=== PATIENT | female | born 1960 | race Caucasian/White ===

== ENCOUNTER 2023-02-18 06:11 | Inpatient (IN) ==
--- NOTE | 2023-01-26 12:35 | PAT Medication Instructions ---
Medication Instructions Date of Service January 26, 2023 Home Medications Cbd 1 dose topical UD PRN Pain aspirin 81 mg capsule 81 mg PO QAM cholecalciferol (vitamin D3) 25 mcg (1,000 unit) tablet (Vitamin D3) 25 mcg PO QAM duloxetine 60 mg capsule,delayed release 60 mg PO BID hydrochlorothiazide 25 mg tablet 25 mg PO QAM hydrocodone 7.5 mg-acetaminophen 325 mg tablet 1 tab PO TID PRN Pain irbesartan 300 mg tablet 300 mg PO QAM levothyroxine 125 mcg tablet 125 mcg PO QAM semaglutide 1 mg/dose (2 mg/1.5 mL) subcutaneous pen injector (Ozempic) 1 mg subcut WK sitagliptin phosphate 25 mg tablet (Januvia) 25 mg PO QAM Continue as directed semaglutide 1 mg/dose (2 mg/1.5 mL) subcutaneous pen injector (Ozempic) 1 mg subcut WK DO NOT take the morning of surgery Cbd 1 dose topical UD PRN Pain cholecalciferol (vitamin D3) 25 mcg (1,000 unit) tablet (Vitamin D3) 25 mcg PO QAM hydrochlorothiazide 25 mg tablet 25 mg PO QAM irbesartan 300 mg tablet 300 mg PO QAM sitagliptin phosphate 25 mg tablet (Januvia) 25 mg PO QAM Take morning of surgery With a small sip of water, OTHERWISE NOTHING TO EAT OR DRINK AFTER MIDNIGHT: aspirin 81 mg capsule 81 mg PO QAM (unless surgeon directed otherwise) duloxetine 60 mg capsule,delayed release 60 mg PO BID hydrocodone 7.5 mg-acetaminophen 325 mg tablet 1 tab PO TID PRN Pain (if needed) levothyroxine 125 mcg tablet 125 mcg PO QAM Take evening before surgery Cbd 1 dose topical UD PRN Pain (if needed) duloxetine 60 mg capsule,delayed release 60 mg PO BID hydrocodone 7.5 mg-acetaminophen 325 mg tablet 1 tab PO TID PRN Pain (if needed) Other Notes If you have any questions please call us at [phone] or [phone] or [phone] or [phone]
--- NOTE | 2023-02-04 12:04 | Anesthesiology Consultation ---
Date of Service February 04, 2023 Assessment & Plan (1) Encounter for pre-operative examination: Chart Review Chart Review: Acceptable Risk for Surgery (pending PCP clearance 02/10/23) and Patient seen in Pre Admission Testing -Awaiting PCP clearance 02/10/23 - Check BSG AM DOS Per PAT appt on 02/04/23, patient denies any recent travel or large group activities. Pt is vaccinated for Covid. Will leave to surgeon's discretion if preop Covid testing needed. Educated on importance of using Covid precautions one week prior to surgery Last seen by cardiology 04/22/2022 = patient seen for annual follow-up for cardiovascular disease. Patient presented March 2019 with acute anterior STEMI. LVEF 40-45%. Follow-up echo in May 2019 demonstrated mild LVH with LV EF 55 to 60%. Patient appears stable from cardiac standpoint. Complaints limited to chronic fatigue that seem to be multifactorial. BP well controlled. No signs of decompensated heart failure. Tolerating lovastatin. Remains on Aspirin 81 mg. No further cardiac testing is warranted at this time. Follow-up in 1 year. Teaching & Discussion Pre-Anesthesia Teaching/Discussion Notes: Instructed NPO after midnight before surgery,except medications with 15 cc of water. Medication instructions provided according to the PAT guidelines. History Surgery Operation Date: 02/18/23 09:05 Proposed Procedures p L4-S1 Decompression and Fusion, Spinal Cord Monitoring - Vinny Mckinley DO Height/Weight Height: 5 ft Weight: 87.7 kg Allergies Allergy/AdvReac Type Severity Reaction Status Date / Time No Known Allergies Allergy Verified 01/26/23 11:02 Medications Home Medications Medication Instructions Recorded Confirmed Last Taken Cbd 1 dose topical UD PRN Pain 01/26/23 01/26/23 Unknown aspirin 81 mg capsule 81 mg PO QAM 01/26/23 01/26/23 Unknown cholecalciferol (vitamin D3) 25 25 mcg PO QAM 01/26/23 01/26/23 Unknown mcg (1,000 unit) tablet (Vitamin D3) duloxetine 60 mg capsule,delayed 60 mg PO BID 01/26/23 01/26/23 Unknown release hydrochlorothiazide 25 mg tablet 25 mg PO QAM 01/26/23 01/26/23 Unknown hydrocodone 7.5 mg-acetaminophen 1 tab PO TID PRN Pain 01/26/23 01/26/23 Unknown 325 mg tablet irbesartan 300 mg tablet 300 mg PO QAM 01/26/23 01/26/23 Unknown levothyroxine 125 mcg tablet 125 mcg PO QAM 01/26/23 01/26/23 Unknown semaglutide 1 mg/dose (2 mg/1.5 1 mg subcut WK 01/26/23 01/26/23 Unknown mL) subcutaneous pen injector (Ozempic) sitagliptin phosphate 25 mg tablet 25 mg PO QAM 01/26/23 01/26/23 Unknown (Lucius) deucravacitinib 6 mg tablet 6 mg PO QAM 02/04/23 02/04/23 Unknown (Otto) Past Medical History Medical History (Updated 02/04/23 @ 15:05 by Madelin Enamorado PA-C) Bulging lumbar disc CAD (coronary artery disease) s/p JED to LAD 2018 Chronic back pain Degenerative disc disease Depression Diabetes mellitus, type 2 Glucose stable GERD (gastroesophageal reflux disease) rarely Hyperlipidemia Hypertension Hypothyroidism Myocardial Infarction March 2019. follows with Dr. Dash ([facility]) Nausea and vomiting after administration of anesthetic agent BONNIE (obstructive sleep apnea) untreated Ovarian mass 2020- s/p bilateral oophorectomy; precancerous - no chemo or XRT needed Psoriasis to head and foot- Spinal stenosis Exercise / Class Metabolic Activity II 4-5 Yardwork/Stairs/Walk up hill (one flight of stairs- no chest pain or SOB) Past Family History Family History Other No family history of adverse response to anesthesia Past Surgical History Surgical History H/O bilateral oophorectomy 2020 History of appendectomy History of cardiac cath [facility] 2018 with x1 stent. History of cholecystectomy History of dilatation and curettage History of esophagogastroduodenoscopy (EGD) History of heart artery stent x1 (2018) History of repair of rotator cuff right S/P epidural steroid injection S/P laparoscopic hysterectomy Past Anesthesia History No Hx of Anesthesia Complications (with exception PONV ) and No Family Hx of Anesthesia Complications History of PONV No Hx of Motion Sickness and History of PONV (improved with pre treatment of anti-nausea medication) Social History Smoking Status: Never smoker Do You Dip or Chew Tobacco: No Hx Alcohol Use: No Hx Substance Use: No substance use type: does not use Review of Systems Patient denies chest pain, shortness of breath, dyspnea on exertion, cough, wheezing, palpitations. No hx of seizures, stroke. No hx of blood clots or blood transfusions Physical Exam Vital Signs VITALS BP 108/78 (manually) P 84 TEMP 98.3 SP02 95% RESP 16 Constitutional no acute distress ENMT Mouth: no TMJ clicking Thyromental Distance: < 3.5 Finger Breadths (3.0) Mallampati Class: III Cap to left upper side tooth Neck + limited neck extension (minimal) Respiratory normal respiratory effort; no respiratory distress Auscultation: lungs clear to auscultation bilaterally; no wheezes Cardiovascular Rate/Rhythm: regular rate and regular rhythm Heart Sounds: no murmur Vessels: no carotid bruit Musculoskeletal Spine: no pain with cervical ROM Extremities: extremities normal to inspection Psychiatric Orientation: alert Lab Results Anesthesia Preop Results Results Anesthesia Widget: WBC 8.52 K/ul (4.8-10.8) 02/04/23 Hgb 13.6 g/dl (12.0-16.0) 02/04/23 Hct 40.3 % (37.0-47.0) 02/04/23 Plt 261 K/uL (130-400) 02/04/23 Na 142 mmol/L (136-145) 02/04/23 K 3.4 mmol/L (3.5-5.1) L 02/04/23 Cl 101 mmol/L (98-107) 02/04/23 CO2 35 mmol/L (21-32) H 02/04/23 BUN 9 mg/dl (6-23) 02/04/23 Creat 0.70 mg/dl (0.6-1.2) 02/04/23 Glucose Level 88 mg/dl (70-99(Fasting)) 02/04/23 PT 11.1 Seconds (9.0-12.0) 02/04/23 PTT 29.1 Seconds (21.0-31.0) 02/04/23 INR 1.0 (0.9-1.1) 02/04/23 HA1c 6.8 % (4.5-5.6) H 02/04/23 Urine Color Yellow 02/04/23 Urine Appearance Clear (Clear) 02/04/23 Urine pH 6.5 (4.5-7.5) 02/04/23 Urine Specific [place] 1.014 (1.000-1.030) 02/04/23 Urine Protein Negative (Negative) 02/04/23 Urine Glucose (UA) Negative (Negative) 02/04/23 Urine Ketones Negative (Negative) 02/04/23 Urine Blood Negative (Negative) 02/04/23 Urine Nitrite Negative (Negative) 02/04/23 Urine Bilirubin Negative (Negative) 02/04/23 Urine Urobilinogen Negative (Negative) 02/04/23 Urine Leukocyte Esterase Negative (Negative) 02/04/23 Blood Type A Positive 02/04/23 Antibody Screen NEGATIVE 02/04/23 Testing Electrocardiogram Date: 04/22/22 Findings: + NSR @ (81bpm) When compared EKG from April 01, 2019T wave inversion no longer evident in anterior lateral leads per cardio Chest X-Ray Date: 02/04/23 FINDINGS: Lung volumes are normal. Lungs are clear. There is no pneumothorax or pleural effusion. Cardiac size is normal. Mediastinal contours are normal. There is no evidence for pulmonary edema. IMPRESSION: No acute cardiopulmonary findings. Echocardiogram Date: 06/13/19 EF: 55-60% LV Function: normal Other Findings: + LVH (mild/concentric ) Valvular Disease: + no significant valvular disease Stress Test Date: 02/28/19 Type: exercise Regular stress test negative for ischemia Patient remained asymptomatic other than mild dyspnea on exertion as the exercise phase was in progress. No ectopy other ventricular or supraventricular Cardiac Catheterization Date: 03/30/19 LM- normal LAD- 95% pLAD stenosis Cx- mild luminal irregularities RCA- mildly diseased proximally and luminal irregularities only LAD lesion stented with JED Recommend one year of antiplatelet therapy COVID-19 Risk Screen Screening Information COVID-19 Screen Date: 02/04/23 Exposure 21 Days Family/Household +COVID Last 21 Days: No Exposure 10 Days Any COVID Exposure Last 10 Days: No Symptoms Last 10 Days Experienced COVID Sx Last 10 Days: No + COVID 0-90 Days COVID + in Last 0-90 Days: No Risk Plan COVID Risk Plan: No Risk Identified Patient Education COVID Preop Screening Education Complete: Yes
[~2023-02-18 06:11] MED LIST: ACETAMINOPHEN 500 MG TAB PO SCH; CeleBREX 200 MG CAP PO SCH; GABAPENTIN 300 MG CAP PO SCH; GABAPENTIN 600 MG DOSE PO SCH; LR 15ML/HR IV SCH; ceFAZolin 2000MG 2,000 MG/15 ML SYR IV SCH
[2023-02-18] MEDS ORDERED: SCOPOLAMINE 1 MG TDSY TD ONE ×2 (07:06→07:07)
[2023-02-18] MEDS ORDERED: ceFAZolin 330 MG/ML 1 GM VIAL ONE (07:06)
[2023-02-18] MEDS ORDERED: BUPIVACAINE/EPINEPHRINE 0.25% 1:200,000 30 ML VIAL ONE (07:06)
[2023-02-18] MEDS ORDERED: fentaNYL citrate PF 100 MCG/2 ML VIAL ONE (07:13)
[2023-02-18] MEDS ORDERED: MIDAZOLAM HCL 1 MG/ML 2ML VIAL ONE (07:13)
[2023-02-18] MEDS ORDERED: HYDROmorphone INJ 2 MG/ML SYR/VIAL IV PRN (07:15)
[2023-02-18] MEDS ORDERED: ePHEDrine sulfate 50 MG/ML AMP IV PRN (07:15)
[2023-02-18] MEDS ORDERED: ATROPINE SULFATE 0.1 MG/ML 10ML SYR IV PRN (07:15)
[2023-02-18] MEDS ORDERED: ONDANSETRON INJ 2 MG/ML 2 ML VIAL IV PRN ×2 (07:15→11:32)
[2023-02-18] MEDS ORDERED: ONDANSETRON INJ 2 MG/ML 2 ML VIAL ONE (07:27)
[2023-02-18] MEDS ORDERED: PROPOFOL IV EMULSION 10 MG/ML 20 ML VIAL IV ONE (07:27)
[2023-02-18] MEDS ORDERED: GLYCOPYRROLATE 0.2 MG/ML VIAL ONE (07:27)
[2023-02-18] MEDS ORDERED: LIDOCAINE 2% 2 ML VIAL/AMP(20MG/ML) INFIL ONE (07:27)
[2023-02-18] MEDS ORDERED: DEXAMETHASONE SOD INJ 4 MG/ML VIAL ONE (07:27)
[2023-02-18] MEDS ORDERED: diphenhydrAMINE 50 MG/ML VIAL ONE (07:27)
[2023-02-18] MEDS ORDERED: DexMEDEtomidine HCL IV 100 MCG/ML VIAL IV ONE (07:33)
--- NOTE | 2023-02-18 07:51 | History & Physical Bridge Note ---
Date of Service February 18, 2023 History & Physical Bridge Note I have examined the patient, reviewed the History & Physical and in the interval since the performance of the History & Physical I have noted the following changes of clinical significance: no changes noted
--- NOTE | 2023-02-18 07:52 | History & Physical Report ---
Date of Service February 18, 2023 Assessment & Plan (1) Neurogenic claudication due to lumbar spinal stenosis: Plan: L4-S1 decompression and fusion History of Present Illness Chief Complaint: Back and leg pain Primary Care Provider: Fernando Valenzuela This is a 62-year-old female who presents with chronic persistent back and leg pain after failing course of nonoperative care she is here for surgical invention. Allergies Allergy/AdvReac Type Severity Reaction Status Date / Time No Known Allergies Allergy Verified 02/18/23 06:40 Home Medications Medication Instructions Recorded Confirmed Type Cbd 1 dose topical UD PRN Pain 01/26/23 02/18/23 History aspirin 81 mg capsule 81 mg PO QAM 01/26/23 02/18/23 History cholecalciferol (vitamin D3) 25 25 mcg PO QAM 01/26/23 02/18/23 History mcg (1,000 unit) tablet (Vitamin D3) duloxetine 60 mg capsule,delayed 60 mg PO BID 01/26/23 02/18/23 History release hydrochlorothiazide 25 mg tablet 25 mg PO QAM 01/26/23 02/18/23 History hydrocodone 7.5 mg-acetaminophen 1 tab PO TID PRN Pain 01/26/23 02/18/23 History 325 mg tablet irbesartan 300 mg tablet 300 mg PO QAM 01/26/23 02/18/23 History levothyroxine 125 mcg tablet 125 mcg PO QAM 01/26/23 02/18/23 History semaglutide 1 mg/dose (2 mg/1.5 1 mg subcut WK 01/26/23 02/18/23 History mL) subcutaneous pen injector (Ozempic) sitagliptin phosphate 25 mg tablet 25 mg PO QAM 01/26/23 02/18/23 History (Januvia) deucravacitinib 6 mg tablet 6 mg PO QAM 02/04/23 02/18/23 History (Sotyktu) Past Med/Surg History Medical History (Updated 02/18/23 @ 07:52 by Vinny Mckinley DO) Bulging lumbar disc CAD (coronary artery disease) s/p JED to LAD 2019 Chronic back pain Degenerative disc disease Depression Diabetes mellitus, type 2 Glucose stable GERD (gastroesophageal reflux disease) rarely Hyperlipidemia Hypertension Hypothyroidism Myocardial Infarction March 2019. follows with Dr. Dash ([facility], [place], operated by [facility]) Nausea and vomiting after administration of anesthetic agent BONNIE (obstructive sleep apnea) untreated Ovarian mass 2020- s/p bilateral oophorectomy; precancerous - no chemo or XRT needed Psoriasis to head and foot- Spinal stenosis Surgical History H/O bilateral oophorectomy 2020 History of appendectomy History of cardiac cath [facility] 2018 with x1 stent. 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
[2023-02-18] MEDS ORDERED: ROCURONIUM BROMIDE 10 MG/ML 5 ML VIAL IV ONE ×2 (08:39→09:23)
[2023-02-18] MEDS ORDERED: FLOSEAL HEMOSTATIC MATRIX 10ML TOP ONE (08:53)
[2023-02-18] MEDS ORDERED: PHENYLEPHRINE HCL 10 MG/ML VIAL ONE (09:48)
[2023-02-18] MEDS ORDERED: SODIUM CHLORIDE 0.9% PF INJ 10 ML VIAL ONE (09:48)
[2023-02-18] MEDS ORDERED: ePHEDrine sulfate 50 MG/ML AMP ONE (09:48)
[2023-02-18] MEDS ORDERED: SUGAMMADEX SODIUM 200 MG/2 ML VIAL IV ONE ×2 (09:57→12:45)
--- NOTE | 2023-02-18 10:09 | Operative Report ---
Post Operative Report Pre & Post Diagnosis Operation Date: 02/18/23 07:45 Pre-Op Diagnosis: Neurogenic claudication due to lumbar spinal stenosis L4-S1 Post-Op Diagnosis: Neurogenic claudication due to lumbar spinal stenosis L4-S1 I identified the patient and participated in the time-out.: Yes Procedure Operation Date: 02/18/23 07:45 Actual Procedures 1. Lumbar decompression with bilateral medial facetectomies and foraminotomies L3-L4, L4-5 and L5-S1. #2 posterior spinal fusion L4-L5 L5-S1. #3 placed posterior instrumentation L5-S1. #4 interbody fusion L5-S1. #5 placement Spira 12 x 26 mm cage at L5-S1. #6 placement locally harvested morselized autograft in the posterior gutters. #7 placement of I factor bone of the talus in the interbody space and posterior lateral gutters. Surgeon Vinny Mckinley, DO Support Merchandiser Radames Barreto Estimated Blood Loss 100 Findings See Below The patient is 5 foot tall weighing over 87 kg with a BMI in excess of 37. The patient's body was did contribute to significant technical difficulty adding her deepest retractors and longer instruments in order to perform her procedure. This at least 50% increased operative time. Specimens none Indications This is a 62-year-old female presents above-mentioned diagnosis after failing since course of nonoperative care she is here for surgical invention. Description of Procedure Patient was met with identified informed consent obtained. Patient was then taken to the operative suite underwent a patient placed in a prone position on the [facility] frame. All bony promises well-padded eyes inspected to ensure no external pressure placed upon the. This point the lumbar spine was prepped and draped in a sterile fashion. Sharp dissection with the assistance of Bovie cautery to form down to and exposing the lamina transverse processes of L4-5 and sacral ala bilaterally. From caudal cephalad fashion complete laminectomy of L5 L4 and partial laminectomy L3 was performed including bilaterally facetectomies and foraminotomies addressing severe spinal stenosis. Pedicle screws were then placed in L4-5 and S1 levels bilaterally with assistance of fluoroscopy and the properly sized tino placed. By way of transforaminal approach and right complete discectomy of L5-S1 was performed endplates curetted to subcortically and bone and a 12 x 26 mm Spira cage with I factor tapped in position. The rods then locked in final position bilaterally. The transverse processes of L4-L5 and the sacral ala burred to subcortically bone. I factor combined with the test and locally harvested morselized autograft was placed in posterior gutters. 15 round PO drain inserted. The incision was then closed with 1 Vicryl the fascia 2-0 Vicryl subcutaneously and 4 Monocryl for final skin closure. Steri-Strips sterile dressing placed. Patient waken taken to PACU stable condition. Please note spinal cord monitoring was utilized at the procedure no changes noted. Lastly Radames Barreto was present at the entire surgeon while the patient positioning complex portion of the surgery and final skin closure. I attest to the content of the Intraoperative Record and any orders documented therein. Any exceptions are noted below.
--- NOTE | 2023-02-18 10:43 | Fluoroscopy Report ---
INTRAOPERATIVE RADIOGRAPHS CLINICAL HISTORY: L4-S1 spinal fusion. Fluoro time: 30 seconds Ka,r: 26.72 mGy FINDINGS: 2 spot fluoroscopic views of the lumbar spine are presented. There has been discectomy at L 5-S1 with laminectomy and posterior fusion at L4-S1. Interpedicular screws are present at all levels. The orthopedic hardware appears intact. IMPRESSION: Intraoperative images from lumbar spinal fusion surgery as above. Electronically signed by: Mann Rashid M.D. 02/18/2023 10:41 AM
[2023-02-18] MEDS ORDERED: HYDROmorphone INJ 1 MG/ML SYRINGE IV PRN (11:32)
[2023-02-18] MEDS ORDERED: bisacodyL 10 MG SUPP PR PRN (11:32)
[2023-02-18] MEDS ORDERED: DO NOT ADMINISTER FLU VACCINE PRN (11:32)
[2023-02-18] MEDS ORDERED: NALOXONE HCL 0.4 MG/1 ML VIAL/CARP IV PRN (11:32)
[2023-02-18] MEDS ORDERED: DO NOT ADMINISTER PNEUMOCOCCAL VACCINE PRN (11:32)
[2023-02-18] MEDS ORDERED: diphenhydrAMINE Capsule 25 MG CAP PO PRN (11:32)
[2023-02-18] MEDS ORDERED: LORazepam 0.5 MG TAB PO PRN (11:32)
[2023-02-18] MEDS ORDERED: MAGNESIUM HYDROXIDE SUSP 30 ML UDC PO PRN (11:32)
[2023-02-18] MEDS ORDERED: HYDROmorphone INJ 0.5 MG/0.5 ML SYR IV PRN (11:32)
[2023-02-18] MEDS ORDERED: PROMETHAZINE HCL 12.5 MG in SODIUM CHLORIDE 0.9% 50 ML IV PRN (11:32)
[2023-02-18] MEDS ORDERED: LORazepam 2 MG/1 ML VIAL IV PRN (11:32)
[2023-02-18] MEDS ORDERED: hydrOXYzine HCl 25 MG TAB PO PRN (11:32)
[2023-02-18] MEDS ORDERED: ALUMINUM/MAGNESIUM SUSP 30 ML UDC PO PRN (11:32)
[2023-02-18] MEDS ORDERED: ACETAMINOPHEN 1,000 MG/100 ML VIAL IV PRN (11:32)
[2023-02-18] MEDS ORDERED: PHARMACY GLYCEMIC MGMT CONSULT PRN (11:32)
[2023-02-18] MEDS ORDERED: ACETAMINOPHEN 500 MG TAB PO PRN (11:32)
[2023-02-18] MEDS ORDERED: traMADol HCL 50 MG TABLET PO PRN (11:32)
[2023-02-18] MEDS ORDERED: SOD PHOSPHATE/SOD BIPHOSPHATE ENEMA 132 ML BTL PR PRN (11:32)
[2023-02-18] MEDS ORDERED: METOCLOPRAMIDE HCL INJ 5 MG/ML 2 ML VIAL IV PRN (11:32)
[2023-02-18] MEDS ORDERED: FAMOTIDINE 20 MG TAB PO PRN (11:32)
[2023-02-18] MEDS ORDERED: ONDANSETRON 4 MG OD TAB PO PRN (11:32)
--- NOTE | 2023-02-18 11:34 | Anesthesiology Progress Note ---
Date of Service February 18, 2023 Anesthesia Post Procedure Vital Signs Vital Signs: Temp Pulse Pulse Resp BP BP Pulse Ox 02/18/23 11:05 88 12 119/71 99 02/18/23 10:55 36.7 C 83 12 127/77 100 02/18/23 10:45 90 12 111/73 99 02/18/23 10:35 92 H 14 130/68 98 02/18/23 10:28 36.3 C L 85 16 120/66 98 02/18/23 06:40 36.7 C 69 16 119/77 98 O2 Del Method O2 Flow Rate 02/18/23 11:05 Nasal Cannula 2 02/18/23 10:55 Nasal Cannula 2 02/18/23 10:45 Nasal Cannula 3 02/18/23 10:35 Oxymask 6 02/18/23 10:28 Oxymask 12 02/18/23 06:40 Room Air Pain Intensity Lower Back: Pain Intensity: 6 Transfer of Care Handoff Completed per policy Notes Mental Status: alert / awake / arousable and participated in evaluation Nausea / Vomiting: adequately controlled Pain: adequately controlled Airway Patency, RR, SpO2: stable & adequate BP & HR: stable & adequate Hydration State: stable & adequate Anesthetic Complications: no major complications apparent and Pt Satisfied with anesthetic care
[2023-02-18] MEDS ORDERED: LANTUS PER UNIT CHARGE SC STA ×2 (12:02→12:03)
[2023-02-18] MEDS ORDERED: GLUCAGON FOR INJ 1 MG VIAL IM PRN (12:15)
[2023-02-18] MEDS ORDERED: GLUCOSE 40% GEL 15 GM TUBE PO PRN (12:15)
[2023-02-18] MEDS ORDERED: DEXTROSE 50% 50 ML SYRINGE IV PRN (12:15)
[2023-02-18] MEDS ORDERED: GLUCOSE 10 TAB/TUBE PO PRN (12:15)
[2023-02-18] MEDS ORDERED: CARBOHYDRATES FOR HYPOGLYCEMIA PO PRN (12:15)
[2023-02-18] MEDS: INSULIN ASPART PER UNIT CHARGE SC SCH ×3 (12:25→21:10)
--- NOTE | 2023-02-18 13:12 | Consultation ---
Date of Consultation February 18, 2023 Assessment & Plan (1) Neurogenic claudication due to lumbar spinal stenosis: (2) Myocardial Infarction: (3) CAD (coronary artery disease): (4) BONNIE (obstructive sleep apnea): (5) Diabetes mellitus, type 2: (6) Hypertension: (7) Hyperlipidemia: (8) Depression: (9) GERD (gastroesophageal reflux disease): (10) Ovarian mass: Plan 62 year olf female that presents to the [facility] for an elective procedure under the care of Dr. Mckinley after failed conservative management. Ms. Soto underwent an L4-S1 decompression and fusion surgery along with interbody fusion of L5-S1. History of AMI 2019 status post stent; takes baby aspirin and follows with [facility]. Takes Januvia for diabetes and HCTZ and irbesartan for HTN. Neurogenic claudication due to lumbar spinal stenosis: POD#0 s/p L4-S1 decompression and fusion surgery with interbody fusion L5-S1 under the care of Dr. Mckinley. Per ortho for pain control, wound care, anticoagulation and activities. Monitor H&H, continue incentive spirometry PT/OT when appropriate CAD: History of AMI status post JED to LAD [address] Lees [facility] Takes baby aspirin; continue BONNIE: Untreated Would benefit from outpatient pulmonology Diabetes mellitus, type II: Takes Januvia and Ozempic; hold while here SSI per inpatient protocol; orderd by primary team HTN: Takes hydrochlorothiazide and irbesartan; hold as SBP 90-100; re-evaluate in AM Depression: Takes duloxetine; continue Psoriasis: Takes deucravacitinib; continue History of ovarian mass: Diagnosed 2020 status post oophorectomy Determined precancerous no chemo or radiation necessary Hypothyroidism: Takes levothyroxine; continue Disposition: PCP: Dr. Valenzuela CODE STATUS: Full code VTE prophylaxis: Per admitting team I spent a total of 60 minutes coordinating, documenting, and providing care for this patient excluding time spent in the performance of separately billed services. All of the aforementioned completed while collaborating with the assigned attending physician for a full treatment plan. Please see their addendum for further details. Supervising Physician Co-Signing Physician Notes Patient is a 62-year-old female with history of diabetes mellitus, renal mass, depression, coronary artery disease, obstructive sleep apnea currently not using CPAP was consulted for postop medical management. Patient underwent lumbar decompression, fusion surgery by Dr. Mckinley for neurogenic claudication of lumbar spinal stenosis L4-S1. Patient is slightly lethargic, hypotensive postop but otherwise doing well. Denies any chest pain, dyspnea, dizziness, nausea, vomiting, abdominal pain. On exam patient is obese, no apparent distress, normocephalic atraumatic, EOMI, normal breath sounds, clear to auscultation, S1- S2, no murmur, no pedal edema, abdomen soft, nontender, normal bowel sounds, back+ surgical site in dressing, drain, alert, awake, oriented, grossly no focal deficits. Postoperative state: Hold antihypertensives given low BP. Continue gentle IV fluids. DVT prophylaxis, activity, wound care as per primary team. Incentive spirometry. Monitor for postop anemia. Bowel regimen to prevent constipation. Utilize insulin while hospitalized for diabetes management. PT OT, fall precautions. I personally reviewed the record. Patient is interviewed and examined at bedside. Patient's care is coordinated with Socorro LUIS. Please refer to the documentation above for details of patient's presentation and for discussion of other issues. History of Present Illness Requesting Physician: Dr. Mckinley Reason for Consultation: Post operative medical management Attending Physician: Vinny Mckinley, DO History of Present Illness Ms. Najera is a 62 year old female that presents to the [facility] for an elective procedure under the care of Dr. Mckinley after failed conservative management. Ms. Soto underwent an L4-S1 decompression and fusion surgery along with interbody fusion of L5-S1. Postoperative lumbar spine x-ray was performed. EBL 100mL. Patient has a PMH that includes: AMI status post JED to LAD in 2019 (follows with [facility] )HTN, HLD, GERD, depression, history of ovarian mass diagnosed 2020 status post oophorectomy (precancerous/no chemo/radiation). Patient denies headache, dizziness, visual or auditory changes, chest pain, palpitations, shortness of breath, abdominal pain or tenderness, urinary or bow el changes. Patient sitting in her hospital bed in no apparent distress. Able to answer questions appropriately without complication. Pt denies neuropathic symptoms in her lower extremities and is able to move all extremities. Complaining of 4-5/10 incisional pain. Please see A/P for further details. Thank you kindly for the post-operative medical consultation. Allergies Allergy/AdvReac Type Severity Reaction Status Date / Time No Known Allergies Allergy Verified 02/18/23 06:40 Home Medications Medication Instructions Recorded Confirmed Type Cbd 1 dose topical UD PRN Pain 01/26/23 02/18/23 History aspirin 81 mg capsule 81 mg PO QAM 01/26/23 02/18/23 History cholecalciferol (vitamin D3) 25 25 mcg PO QAM 01/26/23 02/18/23 History mcg (1,000 unit) tablet (Vitamin D3) duloxetine 60 mg capsule,delayed 60 mg PO BID 01/26/23 02/18/23 History release hydrochlorothiazide 25 mg tablet 25 mg PO QAM 01/26/23 02/18/23 History hydrocodone 7.5 mg-acetaminophen 1 tab PO TID PRN Pain 01/26/23 02/18/23 History 325 mg tablet irbesartan 300 mg tablet 300 mg PO QAM 01/26/23 02/18/23 History levothyroxine 125 mcg tablet 125 mcg PO QAM 01/26/23 02/18/23 History semaglutide 1 mg/dose (2 mg/1.5 1 mg subcut WK 01/26/23 02/18/23 History mL) subcutaneous pen injector (Ozempic) sitagliptin phosphate 25 mg tablet 25 mg PO QAM 01/26/23 02/18/23 History (Januvia) deucravacitinib 6 mg tablet 6 mg PO QAM 02/04/23 02/18/23 History (Sotyktu) Patient History Medical History (Updated 02/18/23 @ 13:04 by TOBY Stone) Bulging lumbar disc CAD (coronary artery disease) s/p JED to LAD 2018 Chronic back pain Degenerative disc disease Depression Diabetes mellitus, type 2 Glucose stable GERD (gastroesophageal reflux disease) rarely Hyperlipidemia Hypertension Hypothyroidism Myocardial Infarction March 2019. follows with Dr. Dash ([facility]) Nausea and vomiting after administration of anesthetic agent BONNIE (obstructive sleep apnea) untreated Ovarian mass 2020- s/p bilateral oophorectomy; precancerous - no chemo or XRT needed Psoriasis to head and foot- Spinal stenosis Surgical History H/O bilateral oophorectomy 2020 History of appendectomy History of cardiac cath [facility] 2018 with x1 stent. History of cholecystectomy History of dilatation and curettage History of esophagogastroduodenoscopy (EGD) History of heart artery stent x1 (2018) History of repair of rotator cuff right S/P epidural steroid injection S/P laparoscopic hysterectomy Family History Other No family history of adverse response to anesthesia Social History Smoking Status: Never smoker Second Hand Exposure: No; Do You Dip or Chew Tobacco: No; Tobacco Cessation Education Requested by Patient: No Hx Alcohol Use: No Hx Substance Use: No Preferred Language: Surinamese Communication Ability: Effective Fitting Room Maintenance Mechanic Required: No Beliefs That Will Affect Care: None Current Living Situation: Spouse Other Information That Helps Us Care for You: No Feels Safe at Home: Yes Safety Concerns: Feels Safe At This Time Assistive Devices: Glasses Review of Systems Review of Systems: Neuro: (-) Falls, trauma, slurred speech HEENT: (-) MCCARTHY, dizziness, dysphagia, visual or auditory changes CV: (-) CP, palpitations, swelling Resp: (-) SOB GI: (-) appetite changes, N/V/D, bowel changes : (-) urinary changes Skin: (-) rashes Psych: (-) anxiety, depression Physical Exam Physical Exam: Neuro: AAOx4, PERRLA, no aphagia, memory changes, CNII-XII grossly intact HEENT: head normocephalic, moist mucus membranes CV: S1/S2, (-) M/G/R, (-) edema, cap refill < 3 seconds . PO drain x1 with sneha red bloody output. Resp: Lungs CTA in all alaniz. On RA GI: Abdomen S/NT/ND, Ax4 bowel sounds, (-) CVA tenderness Musculoskeletal: 5/5 B/L UE strength, 5/5 B/L LE strength. no neuropathic pain. Skin: (-) rashes , (-) erythema. Psych: euthymic mood Results & Data Vital Signs (Past 12 Hours) Vital Signs Temp Pulse Pulse Pulse Resp BP BP 02/18/23 12:15 37.1 C 88 16 100/58 L 02/18/23 11:45 36.5 C 73 16 104/68 02/18/23 11:05 88 12 119/71 02/18/23 10:55 36.7 C 83 12 127/77 02/18/23 10:45 90 12 111/73 02/18/23 10:35 92 H 14 130/68 02/18/23 10:28 36.3 C L 85 16 120/66 02/18/23 06:40 36.7 C 69 16 119/77 Pulse Ox O2 Del Method O2 Flow Rate 02/18/23 12:15 95 Nasal Cannula 2 02/18/23 11:45 93 Room Air 02/18/23 11:05 99 Nasal Cannula 2 02/18/23 10:55 100 Nasal Cannula 2 02/18/23 10:45 99 Nasal Cannula 3 02/18/23 10:35 98 Oxymask 6 02/18/23 10:28 98 Oxymask 12 02/18/23 06:40 98 Room Air Diagnostic Findings Lumbar Spine X-Ray 02/18/23 07:45 INTRAOPERATIVE RADIOGRAPHS CLINICAL HISTORY: L4-S1 spinal fusion. Fluoro time: 30 seconds Ka,r: 26.72 mGy FINDINGS: 2 spot fluoroscopic views of the lumbar spine are presented. There has been discectomy at L5-S1 with laminectomy and posterior fusion at L4-S1. Interpedicular screws are present at all levels. The orthopedic hardware appears intact. IMPRESSION: Intraoperative images from lumbar spinal fusion surgery as above. Electronically signed by: Mann Rashid M.D. 02/18/2023 10:41 AM
--- NOTE | 2023-02-18 14:02 | Pharmacy Report ---
Pharmacy Glycemic Short Note 2 - Date of Service February 18, 2023 - Glycemic Short BSG Results (Last 24 hours): 02/18/23 02/18/23 02/18/23 06:39 10:30 11:53 POC Glucose 112 H 124 H 151 H OUTPATIENT ANTIDIABETIC REGIMEN: * Januvia 25 mg PO AM * Ozempic 1 mg SC once weekly * HbA1c: 6.8% (02/04/23) ASSESSMENT: * 62 yo F admitted on 02/18/23 postoperatively following a L4-S1 decompression and fusion. Pharmacy has been consulted to assist with inpatient glycemic management. Patient is a controlled Type 2 diabetic as an outpatient. Please refer to outpatient regimen and most recent HbA1c above. * Preop BSG was 112 mg/dL. BSG was 124 mg/dL intraop. Postop BSG was 151 mg/dL. * Patient did receive 4 mg of IV dexamethasone intraoperatively. Ordered 6 mg of IV dexamethasone daily x 3 days starting on 02/19/23. Other stressors expected to remain stable. Tolerating a diet postoperatively as well. * Will give full daily basal dose of 0.2 units/kg now x 1 followed by starting 0.1 units/kg SC BID moving forward. Bolus regimen will be based on weight/stress of 3 while on steroids. PLAN FOR INPATIENT GLYCEMIC CONTROL: * Hold outpatient oral diabetes medications * Basal insulin * Lantus 20 units SC x 1 now, then 0-10 units SC BID per scale (see eMAR for more details) * Bolus insulin * NovoLog per scale ACHS or Q6hrs while NPO * Goal Range: Low 110 mg/dL - High 140 mg/dL * Correction Factor: 20 mg/dL/unit * Nutritional / Prandial insulin per carb ratio of 1 unit per 7 grams CHO consumed
[2023-02-18] MEDS: CHECK SCOPOLAMINE PATCH PLACEMENT SCH (15:46)
[2023-02-18] MEDS: ceFAZolin 2000MG 2,000 MG/15 ML SYR IV SCH (15:46)
[2023-02-18] MEDS: SODIUM CHLORIDE 0.9% 1000ML 1,000 ML IV SCH ×2 (15:47→21:16)
[2023-02-18] MEDS: [UNRECOGNIZED DRUG - OTHER] PO SCH (17:52)
[2023-02-18] MEDS: oxyCODONE HCL IR 5 MG TAB (IMMEDIATE RELEASE) PO PRN (19:57)
[2023-02-18] MEDS: DOCUSATE SODIUM/SENNA 50/8.6MG TAB PO SCH (20:02)
[2023-02-18] MEDS: DULoxetine HCL 60 MG CAP PO SCH (20:02)
[2023-02-18] MEDS ORDERED: LANTUS PER UNIT CHARGE SC SCH (21:00)
[2023-02-19] MEDS: ceFAZolin 2000MG 2,000 MG/15 ML SYR IV SCH (00:17)
[2023-02-19] MEDS: CHECK SCOPOLAMINE PATCH PLACEMENT SCH ×4 (00:17→23:45)
[2023-02-19] MEDS: oxyCODONE HCL IR 5 MG TAB (IMMEDIATE RELEASE) PO PRN ×4 (03:18→21:43)
[2023-02-19 05:53] LABS: Basophils # (auto) 0.01 K/uL (0-0.2); Basophils % (auto) 0.1 %; Hematocrit (blood only) 31.7 % (37.0-47.0); Immature Granulocytes # (auto) 0.07 K/uL (0.01-0.20); Immature Granulocytes % (auto) 0.6 %; Lymphocytes # (auto) 0.61 K/uL (1.2-3.4); Lymphocytes % (auto) 5.6 %; Mean Corpuscular Hgb Conc 34.7 g/dL (32.0-36.0); Mean Corpuscular Volume 83.6 fL (80.0-100.0); Mean Platelet Volume 9.7 fL (9.4-12.4); Monocytes # (auto) 0.46 K/uL (0.11-0.59); Monocytes % (auto) 4.2 %; Neutrophils # (auto) 9.81 K/uL (1.40-6.50); Neutrophils % (auto) 89.5 %; Platelet Count 208 K/uL (130-400); RDW Coefficient of Variation 12.4 % (11.5-14.5); RDW Standard Deviation 37.6 fL (36.4-46.3); Red Blood Count 3.79 M/uL (4.20-5.40); White Blood Count 10.96 K/ul (4.8-10.8)
[2023-02-19 06:08] LABS: BUN Creatinine Ratio 15.1 (10-20); Calcium 8.1 mg/dl (8.6-10.3); Creatinine Clr Calc Pharmacy 79.5 ml/min; Est GFR (Non-African American) 88.9 ml/min; Magnesium 1.7 mg/dl (1.7-2.4); Potassium 3.1 mmol/L (3.5-5.1)
[2023-02-19] MEDS: LEVOTHYROXINE SODIUM 125 MCG TABLET PO SCH (06:13)
[2023-02-19] MEDS: POLYETHYLENE (MIRALAX) 17 GM PACK PO SCH ×4 (06:13→23:53)
--- NOTE | 2023-02-19 07:34 | Hospitalist Progress Note ---
Date of Service February 19, 2023 Assessment & Plan (1) Neurogenic claudication due to lumbar spinal stenosis: (2) Myocardial Infarction: (3) CAD (coronary artery disease): (4) BONNIE (obstructive sleep apnea): (5) Diabetes mellitus, type 2: (6) Hypertension: (7) Hyperlipidemia: (8) Depression: (9) GERD (gastroesophageal reflux disease): (10) Ovarian mass: Plan 62 year olf female that presents to the [facility] for an elective procedure under the care of Dr. Mckinley after failed conservative management. Ms. Soto underwent an L4-S1 decompression and fusion surgery along with interbody fusion of L5-S1. History of AMI 2019 status post stent; takes baby aspirin and follows with [facility]. Takes Januvia for diabetes and HCTZ and irbesartan for HTN. Neurogenic claudication due to lumbar spinal stenosis: POD#1 s/p L4-S1 decompression and fusion surgery with interbody fusion L5-S1 under the care of Dr. Mckinley. Per ortho for pain control, wound care, anticoagulation and activities. Monitor H&H, continue incentive spirometry PT/OT when appropriate Acute blood loss anemia (mild), post-operative and partially dilutional - pre op Hgb ~13, post-op Hgb 11 - expected, no need for blood transfusion CAD: History of AMI status post JED to LAD [address] Lees [facility] Takes baby aspirin; continue hypokalemia, hypomagnesemia - this am - should improve w/ resuming diet - for now will replete and monitor BONNIE: Untreated Would benefit from outpatient pulmonology Diabetes mellitus, type II: Takes Januvia and Ozempic; hold while here SSI per inpatient protocol; ordered by primary team HTN: Takes hydrochlorothiazide and irbesartan; hold as SBP 90-100; re-evaluate in AM Depression: Takes duloxetine; continue Psoriasis: Takes deucravacitinib; continue History of ovarian mass: Diagnosed 2020 status post oophorectomy Determined precancerous no chemo or radiation necessary Hypothyroidism: Takes levothyroxine; continue Disposition: PCP: Dr. Valenzuela CODE STATUS: Full code VTE prophylaxis: Per admitting team Admission and Anticipated Discharge Date Admission Date: February 18, 2023 Subjective Pt seen in follow up med consult for s/p spinal surgery Patient is currently sitting up in bed, in no acute distress, eating breakfast Denies any chest pain shortness of breath, denies fevers chills Says she has been sitting up in chair, but has not been ambulating yet She still has Barajas catheter in She is passing gas Back pain seems well controlled Review of Systems Review of Systems: All systems reviewed & are unremarkable except as noted in Subjective Physical Exam Physical Exam: General: WD/WN F in NAD HEENT: head normocephalic, moist mucus membranes CV: S1/S2, (-) M/G/R, (-) edema Resp: Lungs CTA in all alaniz. On RA GI: Abdomen S/NT/ND, Ax4 bowel sounds, (-) CVA tenderness Back: PO drain w/serosang. output., dressings applied Musculoskeletal: moves extremities : Barajas cath w/ clear yellow urine Neuro: AAOx3, PERRL, speech fluent, no facial asymmetry, answers appropriately, moves extremities Skin: warm, dry Results & Data Results & Data Vital Signs (Past 12 Hours) Vital Signs Temp Pulse Resp BP Pulse Ox O2 Del Method 02/19/23 03:16 37.1 C 75 16 107/69 95 Room Air 02/18/23 23:09 36.9 C 70 16 120/79 94 Room Air Laboratory Results 02/19/23 02/19/23 02/18/23 Range/Units 05:39 05:39 20:59 WBC 10.96 H (4.8-10.8) K/ul RBC 3.79 L (4.20-5.40) M/uL Hgb 11.0 L (12.0-16.0) g/dl Hct 31.7 L (37.0-47.0) % MCV 83.6 (80.0-100.0) fL MCH 29.0 (25.0-34.0) pg MCHC 34.7 (32.0-36.0) g/dL RDW Std Deviation 37.6 (36.4-46.3) fL RDW Coeff of Amie 12.4 (11.5-14.5) % Plt Count 208 (130-400) K/uL MPV 9.7 (9.4-12.4) fL Immature Gran % (Auto) 0.6 % Neut % (Auto) 89.5 % Lymph % (Auto) 5.6 % Dauphin % (Auto) 4.2 % Eos % (Auto) 0.0 % Baso % (Auto) 0.1 % Neut # (Auto) 9.81 H (1.40-6.50) K/uL Lymph # (Auto) 0.61 L (1.2-3.4) K/uL Dauphin # (Auto) 0.46 (0.11-0.59) K/uL Eos # (Auto) 0.00 (0-0.50) K/uL Baso # (Auto) 0.01 (0-0.2) K/uL Immature Gran # (Auto) 0.07 (0.01-0.20) K/uL Sodium 141 (136-145) mmol/L Potassium 3.1 L (3.5-5.1) mmol/L Chloride 104 (98-107) mmol/L Carbon Dioxide 32 (21-32) mmol/L Anion Gap 5 (3-11) BUN 11 (6-23) mg/dl Creatinine 0.73 (0.6-1.2) mg/dl Est Cr Clr Drug Dosing 79.5 ml/min Est GFR ( Amer) 103.0 ml/min Est GFR (Non-Af Amer) 88.9 ml/min BUN/Creatinine Ratio 15.1 (10-20) Glucose 138 H (70-99(Fasting)) mg/dl POC Glucose 165 H (70-99) mg/dl Calcium 8.1 L (8.6-10.3) mg/dl Magnesium 1.7 (1.7-2.4) mg/dl Blood Type Antibody Screen 02/18/23 02/18/23 02/18/23 Range/Units 16:54 11:53 10:30 WBC (4.8-10.8) K/ul RBC (4.20-5.40) M/uL Hgb (12.0-16.0) g/dl Hct (37.0-47.0) % MCV (80.0-100.0) fL MCH (25.0-34.0) pg MCHC (32.0-36.0) g/dL RDW Std Deviation (36.4-46.3) fL RDW Coeff of Amie (11.5-14.5) % Plt Count (130-400) K/uL MPV (9.4-12.4) fL Immature Gran % (Auto) % Neut % (Auto) % Lymph % (Auto) % Dauphin % (Auto) % Eos % (Auto) % Baso % (Auto) % Neut # (Auto) (1.40-6.50) K/uL Lymph # (Auto) (1.2-3.4) K/uL Dauphin # (Auto) (0.11-0.59) K/uL Eos # (Auto) (0-0.50) K/uL Baso # (Auto) (0-0.2) K/uL Immature Gran # (Auto) (0.01-0.20) K/uL Sodium (136-145) mmol/L Potassium (3.5-5.1) mmol/L Chloride (98-107) mmol/L Carbon Dioxide (21-32) mmol/L Anion Gap (3-11) BUN (6-23) mg/dl Creatinine (0.6-1.2) mg/dl Est Cr Clr Drug Dosing ml/min Est GFR ( Amer) ml/min Est GFR (Non-Af Amer) ml/min BUN/Creatinine Ratio (10-20) Glucose (70-99(Fasting)) mg/dl POC Glucose 155 H 151 H 124 H (70-99) mg/dl Calcium (8.6-10.3) mg/dl Magnesium (1.7-2.4) mg/dl Blood Type Antibody Screen 02/18/23 Range/Units 06:37 WBC (4.8-10.8) K/ul RBC (4.20-5.40) M/uL Hgb (12.0-16.0) g/dl Hct (37.0-47.0) % MCV (80.0-100.0) fL MCH (25.0-34.0) pg MCHC (32.0-36.0) g/dL RDW Std Deviation (36.4-46.3) fL RDW Coeff of Amie (11.5-14.5) % Plt Count (130-400) K/uL MPV (9.4-12.4) fL Immature Gran % (Auto) % Neut % (Auto) % Lymph % (Auto) % Dauphin % (Auto) % Eos % (Auto) % Baso % (Auto) % Neut # (Auto) (1.40-6.50) K/uL Lymph # (Auto) (1.2-3.4) K/uL Dauphin # (Auto) (0.11-0.59) K/uL Eos # (Auto) (0-0.50) K/uL Baso # (Auto) (0-0.2) K/uL Immature Gran # (Auto) (0.01-0.20) K/uL Sodium (136-145) mmol/L Potassium (3.5-5.1) mmol/L Chloride (98-107) mmol/L Carbon Dioxide (21-32) mmol/L Anion Gap (3-11) BUN (6-23) mg/dl Creatinine (0.6-1.2) mg/dl Est Cr Clr Drug Dosing ml/min Est GFR ( Amer) ml/min Est GFR (Non-Af Amer) ml/min BUN/Creatinine Ratio (10-20) Glucose (70-99(Fasting)) mg/dl POC Glucose (70-99) mg/dl Calcium (8.6-10.3) mg/dl Magnesium (1.7-2.4) mg/dl Blood Type A Positive Antibody Screen NEGATIVE Medications Administered Current Inpatient Medications Acetaminophen (Acetaminophen 500 Mg Tab) 1,000 mg PO Q8H PRN PRN Reason: MILD Pain Scale 1,2,3 & Pre PT Stop: 03/20/23 11:31 Al Hydrox/Mg Hydrox/Simethicone (Aluminum/Magnesium Susp 30 Ml Udc) 30 ml PO Q6H PRN PRN Reason: Dyspepsia Stop: 03/20/23 11:31 Aspirin (Aspirin 81 Mg Ectab) 81 mg PO QAM [facility] Stop: 03/21/23 08:59 Bisacodyl (Bisacodyl 10 Mg Supp) 10 mg [place] DAILY PRN PRN Reason: Constipation Stop: 03/20/23 11:31 Dextrose (Dextrose 50% 50 Ml Syringe) 25 - 50 ml IV UD PRN; Protocol PRN Reason: Hypoglycemia Protocol Stop: 03/20/23 12:14 Diphenhydramine HCl (Diphenhydramine Capsule 25 Mg Cap) 25 mg PO Q6H PRN PRN Reason: Allergic Rhinitis/Insomnia Stop: 03/20/23 11:31 Duloxetine HCl (Duloxetine Hcl 60 Mg Cap) 60 mg PO BID [facility] Stop: 03/20/23 20:59 Last Admin: 02/18/23 20:02 Dose: 60 mg Famotidine (Famotidine 20 Mg Tab) 20 mg PO Q12H PRN PRN Reason: Dyspepsia Stop: 03/20/23 11:31 Glucagon (Glucagon For Inj 1 Mg Vial) 1 mg IM UD PRN; Protocol PRN Reason: Hypoglycemia Protocol Stop: 03/20/23 12:14 Glucose (Glucose 40% Gel 15 Gm Tube) 15 - 30 gm PO UD PRN; Protocol PRN Reason: Hypoglycemia Protocol Stop: 03/20/23 12:14 Glucose (Glucose 10 Tab/Tube) 4 - 8 tab PO UD PRN; Protocol PRN Reason: Hypoglycemia Protocol Stop: 03/20/23 12:14 Hydrochlorothiazide (Hydrochlorothiazide 25 Mg Tab) 25 mg PO QAM [facility] Stop: 03/21/23 08:59 Hydromorphone HCl (Hydromorphone Inj 0.5 Mg/0.5 Ml Syr) 0.5 mg IV Q3H PRN PRN Reason: MODERATE Pain (Scale 4,5,6) & Pre PT Stop: 03/04/23 11:31 Last Admin: 02/18/23 11:58 Dose: 0.5 mg Hydromorphone HCl (Hydromorphone Inj 1 Mg/Ml Syringe) 1 mg IV Q3H PRN PRN Reason: SEVERE Pain (Scale 7,8,9,10) Stop: 03/04/23 11:31 Hydroxyzine HCl (Hydroxyzine Hcl 25 Mg Tab) 25 mg PO Q8H PRN PRN Reason: Anxiety Stop: 03/20/23 11:31 Promethazine HCl 12.5 mg/ (Sodium Chloride) 50.5 mls @ 202 mls/hr IV Q6H PRN PRN Reason: Nausea &/or Vomiting Stop: 03/20/23 11:31 Acetaminophen (Ofirmev) 1,000 mg in 100 mls @ 400 mls/hr IV Q8H PRN PRN Reason: Pain Rating 1-3 & Pre PT Stop: 02/21/23 11:31 Dexamethasone 6 mg/ Syringe 1.5 mls @ 1 mls/min IV DAILY [facility] Stop: 02/21/23 09:02 Influenza Virus Vaccine Quadrival (Do Not Administer Flu Vaccine) 1 each N/A PRN PRN PRN Reason: Notification Stop: 03/20/23 11:31 Insulin Aspart (Insulin Aspart Per Unit Charge) 0 units SC ACHS [facility]; Protocol Stop: 03/20/23 12:14 Last Admin: 02/18/23 21:10 Dose: 2 units Insulin Glargine (Lantus Per Unit Charge) 0 units SC BID [facility]; Protocol Stop: 03/20/23 20:59 Last Admin: 02/18/23 21:11 Dose: 10 units Irbesartan ([facility] 150 Mg Tab) [facility]: 03/21/23 08:59 Levothyroxine Sodium (Levothyroxine Sodium 125 Mcg Tablet) [facility]: 03/21/23 06:29 Last Admin: 02/19/23 06:13 Dose: 125 mcg Lorazepam (Lorazepam 0.5 Mg Tab) 0.5 mg PO Q8H PRN PRN Reason: Sedation/Anxiety Stop: 03/20/23 11:31 Lorazepam (Lorazepam 2 Mg/1 Ml Vial) 0.5 mg IV Q8H PRN PRN Reason: Sedation/Anxiety Stop: 03/20/23 11:31 Magnesium Hydroxide (Magnesium Hydroxide Susp 30 Ml Udc) 30 ml PO Q24H PRN PRN Reason: Constipation Stop: 03/20/23 11:31 Magnesium Oxide (Magnesium Oxide 400 Mg Tab) [facility] Stop: 03/21/23 08:59 Metoclopramide HCl (Metoclopramide Hcl Inj 5 Mg/Ml 2 Ml Vial) 10 mg IV Q6H PRN PRN Reason: Nausea &/or Vomiting Stop: 03/20/23 11:31 Miscellaneous (Remove Transderm-Scop Patch) 1 each N/A ONE ONE Stop: 02/21/23 06:01 Miscellaneous (Check Scopolamine Patch Placement) 1 each N/A QS [facility] Stop: 02/21/23 05:59 Last Admin: 02/19/23 00:17 Dose: 1 each Miscellaneous (Cbd 1 Ea- Order Awaiting Action) 1 each N/A QS [facility] Stop: 03/20/23 15:59 Last Admin: 02/19/23 00:26 Dose: Not Given Miscellaneous (Carbohydrates For Hypoglycemia ) 15 - 30 gm PO UD PRN PRN Reason: Hypoglycemia Treatment Stop: 03/20/23 12:14 Miscellaneous Information (Pharmacy Glycemic Mgmt Consult) 1 each N/A UD PRN PRN Reason: Consult Stop: 03/20/23 11:31 Naloxone HCl (Naloxone Hcl 0.4 Mg/1 Ml Vial/Carp) 0.1 mg IV Q5M PRN PRN Reason: Oversedation/Resp depression Stop: 03/20/23 11:31 Deucravacitinib: Non -Formulary Patient's Own Med 1 each PO DAILY [facility] Stop: 03/20/23 16:59 Last Admin: 02/18/23 17:52 Dose: 1 ea Ondansetron HCl (Ondansetron Inj 2 Mg/Ml 2 Ml Vial) 4 mg IV Q6H PRN PRN Reason: Nausea &/or Vomiting Stop: 03/20/23 11:31 Ondansetron HCl (Ondansetron 4 Mg Od Tab) 4 mg PO Q6H PRN PRN Reason: Nausea Stop: 03/20/23 11:31 Oxycodone HCl (Oxycodone Hcl Ir 5 Mg Tab (Immediate Release)) 5 - 10 mg PO Q4H PRN PRN Reason: Pain & Pre PT Stop: 03/04/23 11:31 Last Admin: 02/19/23 03:18 Dose: 10 mg Pneumococcal Polyvalent Vaccine (Do Not Administer Pneumococcal Vaccine) 1 each N/A PRN PRN PRN Reason: Notification Stop: 03/20/23 11:31 Polyethylene Glycol (Polyethylene (Miralax) 17 Gm Pack) 17 gm PO Q6 [facility] Stop: 03/21/23 05:59 Last Admin: 02/19/23 06:13 Dose: 17 gm Potassium Chloride (Potassium Chloride Crtab 20 Meq Tabcr) 40 meq PO NOW STA Stop: 02/19/23 07:33 Senna/Docusate Sodium (Docusate Sodium/Senna 50/8.6mg Tab) 2 tab PO HS [facility] Stop: 03/20/23 20:59 Last Admin: 02/18/23 20:02 Dose: 2 tab Sodium Biphosphate/Sodium Phosphate (Sod Phosphate/Sod Biphosphate Enema 132 Ml Btl) 132 ml [place] ONE PRN PRN Reason: Constipation Stop: 03/20/23 11:31 Tramadol HCl (Tramadol Hcl 50 Mg Tablet) 50 - 100 mg PO Q4H PRN PRN Reason: Moderate-Severe pain & Pre PT Stop: 03/20/23 11:31 Vitamin D (Cholecalciferol 1,000 Units 25 Mcg Tab) [facility] Stop: 03/21/23 08:59
[2023-02-19] MEDS ORDERED: POTASSIUM CHLORIDE CRTAB 20 MEQ TABCR PO STA (07:43)
[2023-02-19] MEDS: [UNRECOGNIZED DRUG - OTHER] PO SCH (08:09)
[2023-02-19] MEDS: ASPIRIN 81 MG ECTAB PO SCH (08:12)
[2023-02-19] MEDS: DULoxetine HCL 60 MG CAP PO SCH ×2 (08:12→21:44)
[2023-02-19] MEDS: dexAMETHasone 6 MG in SYRINGE 0 ML IV SCH (08:12)
[2023-02-19] MEDS: CHOLECALCIFEROL 1,000 UNITS 25 MCG TAB PO SCH (08:12)
[2023-02-19] MEDS: INSULIN ASPART PER UNIT CHARGE SC SCH ×4 (08:20→21:45)
[2023-02-19] MEDS: MAGNESIUM OXIDE 400 MG TAB PO SCH (08:26)
[2023-02-19] MEDS ORDERED: LANTUS PER UNIT CHARGE SC SCH ×2 (09:00→21:00)
[2023-02-19] MEDS ORDERED: hydroCHLOROthiazide 25 MG TAB PO SCH (09:00)
[2023-02-19] MEDS ORDERED: IRBESARTAN 150 MG TAB PO SCH (09:00)
[2023-02-19] MEDS ORDERED: SITagliptin PHOSPHATE 25 MG TAB PO SCH (09:00)
--- NOTE | 2023-02-19 10:07 | Orthopedic Progress Note ---
Date of Service February 19, 2023 Assessment & Plan (1) Neurogenic claudication due to lumbar spinal stenosis: Plan: At this time initiate physical therapy monitor her PO output anticipate discharge home in the next few days. Admission and Anticipated Discharge Date Admission Date: February 18, 2023 Subjective back pain controlled leg pain improved Physical Exam Physical Exam: Patient is in bed. She is constricted testing. Appears comfortable. Results & Data Vital Signs (Past 12 Hours) Vital Signs Temp Pulse Resp BP Pulse Ox O2 Del Method 02/19/23 07:48 36.7 C 78 16 113/71 95 Room Air 02/19/23 03:16 37.1 C 75 16 107/69 95 Room Air 02/18/23 23:09 36.9 C 70 16 120/79 94 Room Air
[2023-02-19] MEDS: DOCUSATE SODIUM/SENNA 50/8.6MG TAB PO SCH (21:44)
[2023-02-20] MEDS: LEVOTHYROXINE SODIUM 125 MCG TABLET PO SCH (06:04)
[2023-02-20] MEDS: POLYETHYLENE (MIRALAX) 17 GM PACK PO SCH ×4 (06:04→23:06)
[2023-02-20] MEDS: oxyCODONE HCL IR 5 MG TAB (IMMEDIATE RELEASE) PO PRN ×3 (06:04→20:02)
[2023-02-20 06:09] LABS: Hematocrit (blood only) 31.3 % (37.0-47.0); Hemoglobin 10.5 g/dl (12.0-16.0); Mean Corpuscular Hemoglobin 28.6 pg (25.0-34.0); Mean Corpuscular Hgb Conc 33.5 g/dL (32.0-36.0); Mean Corpuscular Volume 85.3 fL (80.0-100.0); Mean Platelet Volume 10.3 fL (9.4-12.4); Platelet Count 222 K/uL (130-400); RDW Coefficient of Variation 12.7 % (11.5-14.5); RDW Standard Deviation 39.1 fL (36.4-46.3); Red Blood Count 3.67 M/uL (4.20-5.40); White Blood Count 10.27 K/ul (4.8-10.8)
[2023-02-20 06:24] LABS: BUN Creatinine Ratio 19.4 (10-20); Calcium 8.5 mg/dl (8.6-10.3); Creatinine Clr Calc Pharmacy 93.7 ml/min; Est GFR (African American) 112.8 ml/min; Est GFR (Non-African American) 97.3 ml/min; Magnesium 2.1 mg/dl (1.7-2.4); Potassium 3.5 mmol/L (3.5-5.1)
[2023-02-20] MEDS: DULoxetine HCL 60 MG CAP PO SCH ×2 (07:31→20:01)
[2023-02-20] MEDS: ASPIRIN 81 MG ECTAB PO SCH (07:31)
[2023-02-20] MEDS: CHECK SCOPOLAMINE PATCH PLACEMENT SCH ×3 (07:31→23:05)
[2023-02-20] MEDS: CHOLECALCIFEROL 1,000 UNITS 25 MCG TAB PO SCH (07:32)
[2023-02-20] MEDS: MAGNESIUM OXIDE 400 MG TAB PO SCH (07:32)
[2023-02-20] MEDS: dexAMETHasone 6 MG in SYRINGE 0 ML IV SCH (07:33)
[2023-02-20] MEDS: [UNRECOGNIZED DRUG - OTHER] PO SCH (07:33)
--- NOTE | 2023-02-20 08:07 | Orthopedic Progress Note ---
Date of Service February 20, 2023 Assessment & Plan (1) Neurogenic claudication due to lumbar spinal stenosis: Plan: Dania is postoperative day 2 status post L4-S1 decompression and instrumented fusion. She is doing well. We will continue with physical therapy today. Maintain PO drain. DVT prophylaxis is in the form of teds and SCDs. Continue with aggressive bowel regimen. Anticipate discharge home tomorrow. Admission and Anticipated Discharge Date Admission Date: February 18, 2023 Subjective Dania is postoperative day 2 status post L4-S1 decompression and instrumented fusion. She is doing well. Has complaints of lower back pain only. No radicular pain. PO drain output last shift was 30 cc. Yesterday in physical therapy she was ambling roughly 150 feet. She is passing flatus but no bowel movement. H&H is morning are 10.5 and 31.3 respectively. She had an uneventful evening. Review of Systems Review of Systems: All systems reviewed & are unremarkable except as noted in HPI & below Physical Exam Physical Exam: Alert and oriented x3 No acute distress Lumbar dressing is clean dry intact with functioning PO Calf soft and nontender bilaterally CECILIA hose intact bilateral lower Strength intact bilateral lower extremities Results & Data Vital Signs (Past 12 Hours) Vital Signs Temp Pulse Resp BP Pulse Ox O2 Del Method 02/20/23 07:00 36.9 C 68 18 105/67 93 Room Air 02/19/23 20:14 36.9 C 72 16 120/73 95 Room Air
[2023-02-20] MEDS: INSULIN ASPART PER UNIT CHARGE SC SCH ×4 (08:18→21:02)
[2023-02-20] MEDS ORDERED: LANTUS PER UNIT CHARGE SC SCH (09:00)
--- NOTE | 2023-02-20 10:20 | Hospitalist Progress Note ---
Date of Service February 20, 2023 Assessment & Plan (1) Neurogenic claudication due to lumbar spinal stenosis: (2) Myocardial Infarction: (3) CAD (coronary artery disease): (4) BONNIE (obstructive sleep apnea): (5) Diabetes mellitus, type 2: (6) Hypertension: (7) Hyperlipidemia: (8) Depression: (9) GERD (gastroesophageal reflux disease): (10) Ovarian mass: Plan 62 year olf female that presents to the [facility] for an elective procedure under the care of Dr. Mckinley after failed conservative management. Ms. Soto underwent an L4-S1 decompression and fusion surgery along with interbody fusion of L5-S1. History of AMI 2019 status post stent; takes baby aspirin and follows with [facility]. Takes Januvia for diabetes and HCTZ and irbesartan for HTN. Neurogenic claudication due to lumbar spinal stenosis: POD#2 s/p L4-S1 decompression and fusion surgery with interbody fusion L5-S1 under the care of Dr. Mckinley. Per ortho for pain control, wound care, anticoagulation and activities. Monitor H&H, continue incentive spirometry PT/OT when appropriate Acute blood loss anemia (mild), post-operative and partially dilutional - pre op Hgb ~13, post-op Hgb 11, now 10.5 (stable from yesterday) - expected, no need for blood transfusion CAD: History of AMI status post JED to LAD [address] Lees [facility] Takes baby aspirin; continue hypokalemia, hypomagnesemia - should improve w/ resuming diet - for now will replete and monitor BONNIE: Untreated Would benefit from outpatient pulmonology Diabetes mellitus, type II: Takes Januvia and Ozempic; hold while here SSI per inpatient protocol; ordered by primary team HTN: Takes hydrochlorothiazide and irbesartan; hold as SBP 90-100; re-evaluate in AM Depression: Takes duloxetine; continue Psoriasis: Takes deucravacitinib; continue History of ovarian mass: Diagnosed 2020 status post oophorectomy Determined precancerous no chemo or radiation necessary Hypothyroidism: Takes levothyroxine; continue Disposition: PCP: Dr. Valenzuela CODE STATUS: Full code VTE prophylaxis: Per admitting team Admission and Anticipated Discharge Date Admission Date: February 18, 2023 Subjective Pt seen in follow up med consult for s/p spinal surgery Patient is currently sitting up in chair, in no acute distress, pt's present at the bedside Denies any chest pain shortness of breath, denies fevers chills She ambulated in hallway Barajas catheter removed and she is voiding w/o difficulty She is passing gas, but no BM yet Back pain seems controlled Review of Systems Review of Systems: All systems reviewed & are unremarkable except as noted in Subjective Physical Exam Physical Exam: General: WD/WN F in NAD HEENT: head normocephalic, moist mucus membranes CV: S1/S2, (-) M/G/R, (-) edema Resp: Lungs CTA in all alaniz. On RA GI: Abdomen S/NT/ND, Ax4 bowel sounds, (-) CVA tenderness Back: PO drain w/serosang. output., dressings applied Musculoskeletal: moves extremities : Barajas cath w/ clear yellow urine Neuro: AAOx3, PERRL, speech fluent, no facial asymmetry, answers appropriately, moves extremities Skin: warm, dry Results & Data Results & Data Vital Signs (Past 12 Hours) Vital Signs Temp Pulse Resp BP Pulse Ox O2 Del Method 02/20/23 07:00 36.9 C 68 18 105/67 93 Room Air Laboratory Results 02/20/23 02/20/23 02/20/23 Range/Units 08:06 05:19 05:19 WBC 10.27 (4.8-10.8) K/ul RBC 3.67 L (4.20-5.40) M/uL Hgb 10.5 L (12.0-16.0) g/dl Hct 31.3 L (37.0-47.0) % MCV 85.3 (80.0-100.0) fL MCH 28.6 (25.0-34.0) pg MCHC 33.5 (32.0-36.0) g/dL RDW Std Deviation 39.1 (36.4-46.3) fL RDW Coeff of Amie 12.7 (11.5-14.5) % Plt Count 222 (130-400) K/uL MPV 10.3 (9.4-12.4) fL Sodium 141 (136-145) mmol/L Potassium 3.5 (3.5-5.1) mmol/L Chloride 104 (98-107) mmol/L Carbon Dioxide 34 H (21-32) mmol/L Anion Gap 3 (3-11) BUN 12 (6-23) mg/dl Creatinine 0.62 (0.6-1.2) mg/dl Est Cr Clr Drug Dosing 93.7 ml/min Est GFR ( Amer) 112.8 ml/min Est GFR (Non-Af Amer) 97.3 ml/min BUN/Creatinine Ratio 19.4 (10-20) Glucose 118 H (70-99(Fasting)) mg/dl POC Glucose 144 H (70-99) mg/dl Calcium 8.5 L (8.6-10.3) mg/dl Magnesium 2.1 (1.7-2.4) mg/dl 02/19/23 02/19/23 02/19/23 Range/Units 20:12 16:58 11:55 WBC (4.8-10.8) K/ul RBC (4.20-5.40) M/uL Hgb (12.0-16.0) g/dl Hct (37.0-47.0) % MCV (80.0-100.0) fL MCH (25.0-34.0) pg MCHC (32.0-36.0) g/dL RDW Std Deviation (36.4-46.3) fL RDW Coeff of Amie (11.5-14.5) % Plt Count (130-400) K/uL MPV (9.4-12.4) fL Sodium (136-145) mmol/L Potassium (3.5-5.1) mmol/L Chloride (98-107) mmol/L Carbon Dioxide (21-32) mmol/L Anion Gap (3-11) BUN (6-23) mg/dl Creatinine (0.6-1.2) mg/dl Est Cr Clr Drug Dosing ml/min Est GFR ( Amer) ml/min Est GFR (Non-Af Amer) ml/min BUN/Creatinine Ratio (10-20) Glucose (70-99(Fasting)) mg/dl POC Glucose 155 H 167 H 131 H (70-99) mg/dl Calcium (8.6-10.3) mg/dl Magnesium (1.7-2.4) mg/dl Medications Administered Current Inpatient Medications Acetaminophen (Acetaminophen 500 Mg Tab) 1,000 mg PO Q8H PRN PRN Reason: MILD Pain Scale 1,2,3 & Pre PT Stop: 03/20/23 11:31 Al Hydrox/Mg Hydrox/Simethicone (Aluminum/Magnesium Susp 30 Ml Udc) 30 ml PO Q6H PRN PRN Reason: Dyspepsia Stop: 03/20/23 11:31 Aspirin (Aspirin 81 Mg Ectab) 81 mg PO QAM [facility] Stop: 03/21/23 08:59 Last Admin: 02/20/23 07:31 Dose: 81 mg Bisacodyl (Bisacodyl 10 Mg Supp) 10 mg ME DAILY PRN PRN Reason: Constipation Stop: 03/20/23 11:31 Dextrose (Dextrose 50% 50 Ml Syringe) 25 - 50 ml IV UD PRN; Protocol PRN Reason: Hypoglycemia Protocol Stop: 03/20/23 12:14 Diphenhydramine HCl (Diphenhydramine Capsule 25 Mg Cap) 25 mg PO Q6H PRN PRN Reason: Allergic Rhinitis/Insomnia Stop: 03/20/23 11:31 Duloxetine HCl (Duloxetine Hcl 60 Mg Cap) 60 mg PO BID [facility] Stop: 03/20/23 20:59 Last Admin: 02/20/23 07:31 Dose: 60 mg Famotidine (Famotidine 20 Mg Tab) 20 mg PO Q12H PRN PRN Reason: Dyspepsia Stop: 03/20/23 11:31 Glucagon (Glucagon For Inj 1 Mg Vial) 1 mg IM UD PRN; Protocol PRN Reason: Hypoglycemia Protocol Stop: 03/20/23 12:14 Glucose (Glucose 40% Gel 15 Gm Tube) 15 - 30 gm PO UD PRN; Protocol PRN Reason: Hypoglycemia Protocol Stop: 03/20/23 12:14 Glucose (Glucose 10 Tab/Tube) 4 - 8 tab PO UD PRN; Protocol PRN Reason: Hypoglycemia Protocol Stop: 03/20/23 12:14 Hydrochlorothiazide (Hydrochlorothiazide 25 Mg Tab) 25 mg PO QAM [facility] Stop: 03/21/23 08:59 Hydromorphone HCl (Hydromorphone Inj 0.5 Mg/0.5 Ml Syr) 0.5 mg IV Q3H PRN PRN Reason: MODERATE Pain (Scale 4,5,6) & Pre PT Stop: 03/04/23 11:31 Last Admin: 02/18/23 11:58 Dose: 0.5 mg Hydromorphone HCl (Hydromorphone Inj 1 Mg/Ml Syringe) 1 mg IV Q3H PRN PRN Reason: SEVERE Pain (Scale 7,8,9,10) Stop: 03/04/23 11:31 Hydroxyzine HCl (Hydroxyzine Hcl 25 Mg Tab) 25 mg PO Q8H PRN PRN Reason: Anxiety Stop: 03/20/23 11:31 Promethazine HCl 12.5 mg/ (Sodium Chloride) 50.5 mls @ 202 mls/hr IV Q6H PRN PRN Reason: Nausea &/or Vomiting Stop: 03/20/23 11:31 Acetaminophen (Ofirmev) 1,000 mg in 100 mls @ 400 mls/hr IV Q8H PRN PRN Reason: Pain Rating 1-3 & Pre PT Stop: 02/21/23 11:31 Dexamethasone 6 mg/ Syringe 1.5 mls @ 1 mls/min IV DAILY [facility] Stop: 02/21/23 09:02 Last Admin: 02/20/23 07:33 Dose: 1 mls/min Influenza Virus Vaccine Quadrival (Do Not Administer Flu Vaccine) 1 each N/A PRN PRN PRN Reason: Notification Stop: 03/20/23 11:31 Insulin Aspart (Insulin Aspart Per Unit Charge) 0 units SC [facility]; Protocol Stop: 03/20/23 12:14 Last Admin: 02/20/23 08:18 Dose: 8 units Insulin Glargine (Lantus Per Unit Charge) 20 units SC [facility] Stop: 03/22/23 08:59 Last Admin: 02/20/23 08:19 Dose: 20 units Irbesartan (Irbesartan 150 Mg Tab) 300 mg PO [facility] Stop: 03/21/23 08:59 Levothyroxine Sodium (Levothyroxine Sodium 125 Mcg Tablet) [facility] Stop: 03/21/23 06:29 Last Admin: 02/20/23 06:04 Dose: 125 mcg Lorazepam (Lorazepam 0.5 Mg Tab) 0.5 mg PO Q8H PRN PRN Reason: Sedation/Anxiety Stop: 03/20/23 11:31 Lorazepam (Lorazepam 2 Mg/1 Ml Vial) 0.5 mg IV Q8H PRN PRN Reason: Sedation/Anxiety Stop: 03/20/23 11:31 Magnesium Hydroxide (Magnesium Hydroxide Susp 30 Ml Udc) 30 ml PO Q24H PRN PRN Reason: Constipation Stop: 03/20/23 11:31 Magnesium Oxide (Magnesium Oxide 400 Mg Tab) 400 mg PO QAM [facility] Stop: 03/21/23 08:59 Last Admin: 02/20/23 07:32 Dose: 400 mg Metoclopramide HCl (Metoclopramide Hcl Inj 5 Mg/Ml 2 Ml Vial) 10 mg IV Q6H PRN PRN Reason: Nausea &/or Vomiting Stop: 03/20/23 11:31 Miscellaneous (Remove Transderm-Scop Patch) 1 each N/A ONE ONE Stop: 02/21/23 06:01 Miscellaneous (Check Scopolamine Patch Placement) 1 each N/A QS [facility] Stop: 02/21/23 05:59 Last Admin: 02/20/23 07:31 Dose: 1 each Miscellaneous (Cbd 1 Ea- Order Awaiting Action) 1 each N/A QS [facility] Stop: 03/20/23 15:59 Last Admin: 02/20/23 07:31 Dose: Not Given Miscellaneous (Carbohydrates For Hypoglycemia ) 15 - 30 gm PO UD PRN PRN Reason: Hypoglycemia Treatment Stop: 03/20/23 12:14 Miscellaneous Information (Pharmacy Glycemic Mgmt Consult) 1 each N/A UD PRN PRN Reason: Consult Stop: 03/20/23 11:31 Naloxone HCl (Naloxone Hcl 0.4 Mg/1 Ml Vial/Carp) 0.1 mg IV Q5M PRN PRN Reason: Oversedation/Resp depression Stop: 03/20/23 11:31 Deucravacitinib: Non -Formulary Patient's Own Med 1 each PO DAILY [facility] Stop: 03/20/23 16:59 Last Admin: 02/20/23 07:33 Dose: 1 ea Ondansetron HCl (Ondansetron Inj 2 Mg/Ml 2 Ml Vial) 4 mg IV Q6H PRN PRN Reason: Nausea &/or Vomiting Stop: 03/20/23 11:31 Ondansetron HCl (Ondansetron 4 Mg Od Tab) 4 mg PO Q6H PRN PRN Reason: Nausea Stop: 03/20/23 11:31 Oxycodone HCl (Oxycodone Hcl Ir 5 Mg Tab (Immediate Release)) 5 - 10 mg PO Q4H PRN PRN Reason: Pain & Pre PT Stop: 03/04/23 11:31 Last Admin: 02/20/23 06:04 Dose: 10 mg Pneumococcal Polyvalent Vaccine (Do Not Administer Pneumococcal Vaccine) 1 each N/A PRN PRN PRN Reason: Notification Stop: 03/20/23 11:31 Polyethylene Glycol (Polyethylene (Miralax) 17 Gm Pack) 17 gm PO Q6 [facility] Stop: 03/21/23 05:59 Last Admin: 02/20/23 06:04 Dose: 17 gm Senna/Docusate Sodium (Docusate Sodium/Senna 50/8.6mg Tab) 2 tab PO HS [facility] Stop: 03/20/23 20:59 Last Admin: 02/19/23 21:44 Dose: 2 tab Sodium Biphosphate/Sodium Phosphate (Sod Phosphate/Sod Biphosphate Enema 132 Ml Btl) 132 ml ME ONE PRN PRN Reason: Constipation Stop: 03/20/23 11:31 Tramadol HCl (Tramadol Hcl 50 Mg Tablet) 50 - 100 mg PO Q4H PRN PRN Reason: Moderate-Severe pain & Pre PT Stop: 03/20/23 11:31 Vitamin D (Cholecalciferol 1,000 Units 25 Mcg Tab) 1,000 units PO QAM [facility] Stop: 03/21/23 08:59 Last Admin: 02/20/23 07:32 Dose: 1,000 units
[2023-02-20] MEDS ORDERED: POTASSIUM CHLORIDE CRTAB 20 MEQ TABCR PO STA (11:25)
[2023-02-20] MEDS: DOCUSATE SODIUM/SENNA 50/8.6MG TAB PO SCH (20:01)
[2023-02-21] MEDS: POLYETHYLENE (MIRALAX) 17 GM PACK PO SCH (05:32)
[2023-02-21] MEDS: LEVOTHYROXINE SODIUM 125 MCG TABLET PO SCH (05:32)
[2023-02-21 07:24] LABS: Hematocrit (blood only) 33.9 % (37.0-47.0); Hemoglobin 11.2 g/dl (12.0-16.0)
[2023-02-21 07:39] LABS: BUN Creatinine Ratio 18.2 (10-20); Calcium 8.7 mg/dl (8.6-10.3); Creatinine Clr Calc Pharmacy 75.4 ml/min; Est GFR (African American) 96.6 ml/min; Est GFR (Non-African American) 83.3 ml/min; Potassium 3.9 mmol/L (3.5-5.1)
--- NOTE | 2023-02-21 08:06 | Hospitalist Progress Note ---
Date of Service February 21, 2023 Assessment & Plan (1) Neurogenic claudication due to lumbar spinal stenosis: (2) Myocardial Infarction: (3) CAD (coronary artery disease): (4) BONNIE (obstructive sleep apnea): (5) Diabetes mellitus, type 2: (6) Hypertension: (7) Hyperlipidemia: (8) Depression: (9) GERD (gastroesophageal reflux disease): (10) Ovarian mass: Plan 62 year olf female that presents to the [facility] for an elective procedure under the care of Dr. Mckinley after failed conservative management. Ms. Soto underwent an L4-S1 decompression and fusion surgery along with interbody fusion of L5-S1. History of AMI 2019 status post stent; takes baby aspirin and follows with [facility]. Takes Januvia for diabetes and HCTZ and irbesartan for HTN. Neurogenic claudication due to lumbar spinal stenosis: POD#3 s/p L4-S1 decompression and fusion surgery with interbody fusion L5-S1 under the care of Dr. Mckinley. Per ortho for pain control, wound care, anticoagulation and activities. Monitor H&H, continue incentive spirometry PT/OT when appropriate Acute blood loss anemia (mild), post-operative and partially dilutional - pre op Hgb ~13, post-op Hgb 11, now 11.2 (stable) - expected, no need for blood transfusion CAD: History of AMI status post JED to LAD [address] Lees [facility] Takes baby aspirin; continue hypokalemia, hypomagnesemia - should improve w/ resuming diet - for now will replete and monitor BONNIE: Untreated Would benefit from outpatient pulmonology Diabetes mellitus, type II: Takes Januvia and Ozempic; hold while here SSI per inpatient protocol; ordered by primary team HTN: Takes hydrochlorothiazide and irbesartan; hold as SBP 90-100 - recommend to hold HCTZ on discharge until seen by PCP Depression: Takes duloxetine; continue Psoriasis: Takes deucravacitinib; continue History of ovarian mass: Diagnosed 2020 status post oophorectomy Determined precancerous no chemo or radiation necessary Hypothyroidism: Takes levothyroxine; continue Disposition: PCP: Dr. Valenzuela CODE STATUS: Full code VTE prophylaxis: Per admitting team Admission and Anticipated Discharge Date Admission Date: February 18, 2023 Subjective Pt seen in follow up med consult for s/p spinal surgery Patient is currently laying in bed, in no acute distress Denies any chest pain shortness of breath, denies fevers chills She ambulated in hallway Barajas catheter removed and she is voiding w/o difficulty She is passing gas, but no BM yet Back pain seems controlled Plan to likely DC later today by primary service Review of Systems Review of Systems: All systems reviewed & are unremarkable except as noted in Subjective Physical Exam Physical Exam: General: WD/WN F in NAD HEENT: head normocephalic, moist mucus membranes CV: S1/S2, (-) M/G/R, (-) edema Resp: Lungs CTA in all alaniz. On RA GI: Abdomen S/NT/ND, Ax4 bowel sounds, (-) CVA tenderness Back: PO drain w/serosang. output., dressings applied Musculoskeletal: moves extremities : Barajas cath w/ clear yellow urine Neuro: AAOx3, PERRL, speech fluent, no facial asymmetry, answers appropriately, moves extremities Skin: warm, dry Results & Data Results & Data Vital Signs (Past 12 Hours) Vital Signs Temp Pulse Resp BP Pulse Ox O2 Del Method 02/21/23 07:01 37 C 67 16 124/82 99 Room Air Laboratory Results 02/21/23 02/21/23 02/21/23 Range/Units 07:58 07:04 07:04 Hgb 11.2 L (12.0-16.0) g/dl Hct 33.9 L (37.0-47.0) % Sodium 143 (136-145) mmol/L Potassium 3.9 (3.5-5.1) mmol/L Chloride 103 (98-107) mmol/L Carbon Dioxide 36 H (21-32) mmol/L Anion Gap 4 (3-11) BUN 14 (6-23) mg/dl Creatinine 0.77 (0.6-1.2) mg/dl Est Cr Clr Drug Dosing 75.4 ml/min Est GFR ( Amer) 96.6 ml/min Est GFR (Non-Af Amer) 83.3 ml/min BUN/Creatinine Ratio 18.2 (10-20) Glucose 120 H (70-99(Fasting)) mg/dl POC Glucose 106 H (70-99) mg/dl Calcium 8.7 (8.6-10.3) mg/dl 02/20/23 02/20/2302/20/23 Range/Units 20:58 17:00 12:07 Hgb (12.0-16.0) g/dl Hct (37.0-47.0) % Sodium (136-145) mmol/L Potassium (3.5-5.1) mmol/L Chloride (98-107) mmol/L Carbon Dioxide (21-32) mmol/L Anion Gap (3-11) BUN (6-23) mg/dl Creatinine (0.6-1.2) mg/dl Est Cr Clr Drug Dosing ml/min Est GFR ( Amer) ml/min Est GFR (Non-Af Amer) ml/min BUN/Creatinine Ratio (10-20) Glucose (70-99(Fasting)) mg/dl POC Glucose 141 H 159 H 184 H (70-99) mg/dl Calcium (8.6-10.3) mg/dl 02/20/23 Range/Units 08:06 Hgb (12.0-16.0) g/dl Hct (37.0-47.0) % Sodium (136-145) mmol/L Potassium (3.5-5.1) mmol/L Chloride (98-107) mmol/L Carbon Dioxide (21-32) mmol/L Anion Gap (3-11) BUN (6-23) mg/dl Creatinine (0.6-1.2) mg/dl Est Cr Clr Drug Dosing ml/min Est GFR ( Amer) ml/min Est GFR (Non-Af Amer) ml/min BUN/Creatinine Ratio (10-20) Glucose (70-99(Fasting)) mg/dl POC Glucose 144 H (70-99) mg/dl Calcium (8.6-10.3) mg/dl Medications Administered Current Inpatient Medications Acetaminophen (Acetaminophen 500 Mg Tab) 1,000 mg PO Q8H PRN PRN Reason: MILD Pain Scale 1,2,3 & Pre PT Stop: 03/20/23 11:31 Al Hydrox/Mg Hydrox/Simethicone (Aluminum/Magnesium Susp 30 Ml Udc) 30 ml PO Q6H PRN PRN Reason: Dyspepsia Stop: 03/20/23 11:31 Aspirin (Aspirin 81 Mg Ectab) [facility] Stop: 03/21/23 08:59 Last Admin: 02/20/23 07:31 Dose: 81 mg Bisacodyl (Bisacodyl 10 Mg Supp) 10 mg [place] DAILY PRN PRN Reason: Constipation Stop: 03/20/23 11:31 Dextrose (Dextrose 50% 50 Ml Syringe) 25 - 50 ml IV UD PRN; Protocol PRN Reason: Hypoglycemia Protocol Stop: 03/20/23 12:14 Diphenhydramine HCl (Diphenhydramine Capsule 25 Mg Cap) 25 mg PO Q6H PRN PRN Reason: Allergic Rhinitis/Insomnia Stop: 03/20/23 11:31 Duloxetine HCl (Duloxetine Hcl 60 Mg Cap) 60 mg PO BID [facility] Stop: 03/20/23 20:59 Last Admin: 02/20/23 20:01 Dose: 60 mg Famotidine (Famotidine 20 Mg Tab) 20 mg PO Q12H PRN PRN Reason: Dyspepsia Stop: 03/20/23 11:31 Glucagon (Glucagon For Inj 1 Mg Vial) 1 mg IM UD PRN; Protocol PRN Reason: Hypoglycemia Protocol Stop: 03/20/23 12:14 Glucose (Glucose 40% Gel 15 Gm Tube) 15 - 30 gm PO UD PRN; Protocol PRN Reason: Hypoglycemia Protocol Stop: 03/20/23 12:14 Glucose (Glucose 10 Tab/Tube) 4 - 8 tab PO UD PRN; Protocol PRN Reason: Hypoglycemia Protocol Stop: 03/20/23 12:14 Hydrochlorothiazide (Hydrochlorothiazide 25 Mg Tab) 25 mg PO QAM [facility] Stop: 03/21/23 08:59 Hydromorphone HCl (Hydromorphone Inj 0.5 Mg/0.5 Ml Syr) 0.5 mg IV Q3H PRN PRN Reason: MODERATE Pain (Scale 4,5,6) & Pre PT Stop: 03/04/23 11:31 Last Admin: 02/18/23 11:58 Dose: 0.5 mg Hydromorphone HCl (Hydromorphone Inj 1 Mg/Ml Syringe) 1 mg IV Q3H PRN PRN Reason: SEVERE Pain (Scale 7,8,9,10) Stop: 03/04/23 11:31 Hydroxyzine HCl (Hydroxyzine Hcl 25 Mg Tab) 25 mg PO Q8H PRN PRN Reason: Anxiety Stop: 03/20/23 11:31 Promethazine HCl 12.5 mg/ (Sodium Chloride) 50.5 mls @ 202 mls/hr IV Q6H PRN PRN Reason: Nausea &/or Vomiting Stop: 03/20/23 11:31 Acetaminophen (Ofirmev) 1,000 mg in 100 mls @ 400 mls/hr IV Q8H PRN PRN Reason: Pain Rating 1-3 & Pre PT Stop: 02/21/23 11:31 Dexamethasone 6 mg/ Syringe 1.5 mls @ 1 mls/min IV DAILY [facility] Stop: 02/21/23 09:02 Last Admin: 02/20/23 07:33 Dose: 1 mls/min Influenza Virus Vaccine Quadrival (Do Not Administer Flu Vaccine) 1 each N/A PRN PRN PRN Reason: Notification Stop: 03/20/23 11:31 Insulin Aspart (Insulin Aspart Per Unit Charge) 0 units SC [facility]; Protocol Stop: 03/20/23 12:14 Last Admin: 02/20/23 21:02 Dose: 1 units Insulin Glargine (Lantus Per Unit Charge) 25 units SC [facility] Stop: 03/23/23 08:59 Irbesartan (Irbesartan 150 Mg Tab) 300 mg PO [facility] Stop: 03/21/23 08:59 Levothyroxine Sodium (Levothyroxine Sodium 125 Mcg Tablet) [facility] Stop: 03/21/23 06:29 Last Admin: 02/21/23 05:32 Dose: 125 mcg Lorazepam (Lorazepam 0.5 Mg Tab) 0.5 mg PO Q8H PRN PRN Reason: Sedation/Anxiety Stop: 03/20/23 11:31 Lorazepam (Lorazepam 2 Mg/1 Ml Vial) 0.5 mg IV Q8H PRN PRN Reason: Sedation/Anxiety Stop: 03/20/23 11:31 Magnesium Hydroxide (Magnesium Hydroxide Susp 30 Ml Udc) 30 ml PO Q24H PRN PRN Reason: Constipation Stop: 03/20/23 11:31 Last Admin: 02/20/23 20:02 Dose: 30 ml Magnesium Oxide (Magnesium Oxide 400 Mg Tab) 400 mg PO [facility] Stop: 03/21/23 08:59 Last Admin: 02/20/23 07:32 Dose: 400 mg Metoclopramide HCl (Metoclopramide Hcl Inj 5 Mg/Ml 2 Ml Vial) 10 mg IV Q6H PRN PRN Reason: Nausea &/or Vomiting Stop: 03/20/23 11:31 Miscellaneous (Cbd 1 Ea- Order Awaiting Action) 1 each N/A QS [facility] Stop: 03/20/23 15:59 Last Admin: 02/20/23 23:05 Dose: Not Given Miscellaneous (Carbohydrates For Hypoglycemia ) 15 - 30 gm PO UD PRN PRN Reason: Hypoglycemia Treatment Stop: 03/20/23 12:14 Miscellaneous Information (Pharmacy Glycemic Mgmt Consult) 1 each N/A UD PRN PRN Reason: Consult Stop: 03/20/23 11:31 Naloxone HCl (Naloxone Hcl 0.4 Mg/1 Ml Vial/Carp) 0.1 mg IV Q5M PRN PRN Reason: Oversedation/Resp depression Stop: 03/20/23 11:31 Deucravacitinib: Non -Formulary Patient's Own Med 1 each PO DAILY [facility] Stop: 03/20/23 16:59 Last Admin: 02/20/23 07:33 Dose: 1 ea Ondansetron HCl (Ondansetron Inj 2 Mg/Ml 2 Ml Vial) 4 mg IV Q6H PRN PRN Reason: Nausea &/or Vomiting Stop: 03/20/23 11:31 Ondansetron HCl (Ondansetron 4 Mg Od Tab) 4 mg PO Q6H PRN PRN Reason: Nausea Stop: 03/20/23 11:31 Oxycodone HCl (Oxycodone Hcl Ir 5 Mg Tab (Immediate Release)) 5 - 10 mg PO Q4H PRN PRN Reason: Pain & Pre PT Stop: 03/04/23 11:31 Last Admin: 02/20/23 20:02 Dose: 10 mg Pneumococcal Polyvalent Vaccine (Do Not Administer Pneumococcal Vaccine) 1 each N/A PRN PRN PRN Reason: Notification Stop: 03/20/23 11:31 Polyethylene Glycol (Polyethylene (Miralax) 17 Gm Pack) 17 gm PO Q6 [facility] Stop: 03/21/23 05:59 Last Admin: 02/21/23 05:32 Dose: 17 gm Senna/Docusate Sodium (Docusate Sodium/Senna 50/8.6mg Tab) 2 tab PO HS [facility] Stop: 03/20/23 20:59 Last Admin: 02/20/23 20:01 Dose: 2 tab Sodium Biphosphate/Sodium Phosphate (Sod Phosphate/Sod Biphosphate Enema 132 Ml Btl) 132 ml FL ONE PRN PRN Reason: Constipation Stop: 03/20/23 11:31 Tramadol HCl (Tramadol Hcl 50 Mg Tablet) 50 - 100 mg PO Q4H PRN PRN Reason: Moderate-Severe pain & Pre PT Stop: 03/20/23 11:31 Vitamin D (Cholecalciferol 1,000 Units 25 Mcg Tab) [facility] Stop: 03/21/23 08:59 Last Admin: 02/20/23 07:32 Dose: 1,000 units
[2023-02-21] MEDS: MAGNESIUM OXIDE 400 MG TAB PO SCH (08:50)
[2023-02-21] MEDS: ASPIRIN 81 MG ECTAB PO SCH (08:50)
[2023-02-21] MEDS: dexAMETHasone 6 MG in SYRINGE 0 ML IV SCH (08:51)
[2023-02-21] MEDS: [UNRECOGNIZED DRUG - OTHER] PO SCH (08:52)
[2023-02-21] MEDS: DULoxetine HCL 60 MG CAP PO SCH ×2 (08:54→09:15)
[2023-02-21] MEDS: CHOLECALCIFEROL 1,000 UNITS 25 MCG TAB PO SCH (08:59)
[2023-02-21] MEDS ORDERED: LANTUS PER UNIT CHARGE SC SCH ×2 (09:00)
[2023-02-21] MEDS: INSULIN ASPART PER UNIT CHARGE SC SCH (09:10)
[2023-02-21] MEDS: oxyCODONE HCL IR 5 MG TAB (IMMEDIATE RELEASE) PO PRN (09:11)
--- NOTE | 2023-02-21 09:22 | Discharge Summary ---
Date of Service February 21, 2023 Admission HPI Per Admitting Provider This is a 62-year-old female who presents with chronic persistent back and leg pain after failing course of nonoperative care she is here for surgical invention. Principal Diagnosis Lumbar spinal stenosis with neurogenic claudication Discharge Data Allergies Allergy/AdvReac Type Severity Reaction Status Date / Time No Known Allergies Allergy Verified 02/18/23 06:40 Consultations 02/18/23 11:32 Consult Hospitalist Routine Procedures Performed Operation Date: 02/18/23 07:45 Actual Procedures p L4-S1 Decompression and Fusion, Interbody Fusion L5-S1, Spinal Cord Monitoring - Vinny Mckinley DO Ordered Studies 02/18/23 07:45 [place] lumbar spine 2-3V Routine Hospital Course (1) Neurogenic claudication due to lumbar spinal stenosis: Patient went lumbar decompression fusion tolerated this well was taken to orthopedic floor postoperative. Postop day 1 she was up and ambulating breast postop day #2 on postop day #3 PO drain decreased appropriate. Excellent strength testing. Pain well controlled. Subsequent discharge home. Discharge orders and instructions found in chart for further review. Total Time Total Time Spent Total Time Spent (In Minutes): 20 minutes Discharge Plan Discharge Items Patient Disposition: Home - Self-Care Reason For Visit: Lumbar Region Intervertebral Disc Disorders with Discharge Diagnosis: Lumbar spinal stenosis with neurogenic claudication Activity: As commented below Non-emergency contact: Primary Care Provider Call non-emergency contact if: you have any medication questions Follow-up/Referrals: Fernando Valenzuela [Primary Care Provider] - Diet: Regular Addtl Attending Provider Instructions: ACTIVITY RECOMMENDATIONS: SELF CARE INSTRUCTIONS AFTER THORACIC/LUMBAR FUSIONS 1. You may walk to your tolerance. It is good exercise for your legs and back. Expect some back and intermittent leg aches and pains. 2. You may perform "counter-top" level activities (make a sandwich, eliezer with a project, etc.). 3. No bending or lifting of more than 10 pounds or back twisting of any nature (roll like a log when turning in bed). 4. You may ride in a car for 20-30 minutes at a time. No driving until after your first visit with your doctor. 5. Frequent changes of position and restricting sitting to 30 minutes at a time will help limit the amount of back spasms and stiffness you may experience. 6. You may discontinue the use of ambulatory aids (cane, crutches, etc.) once your strength and confidence allow. 7. You may brake coupler dinkey the shower and let water strike your incision when you arrive home at least once daily. Do not take a tub bath, sit in a hot tub or go into a swimming pool until after your first recheck in the office. SPECIAL CARE INSTRUCTIONS: VERY IMPORTANT TO READ AND REVIEW A. Your surgical incision has been closed with a cosmetic suture under the skin that will dissolve in about 6 weeks. In 14 days, you can use a pair of clean scissors and cut the suture that is left outside of the skin at the ends of your incision. 1. The small skin tapes can be removed 7 days after surgery if they have not fallen off by that point. 2. You may keep the wound open to air as much as possible to promote healing after post-op day number 5 unless told otherwise by your doctor. 3. If you think the wound looks like it is becoming infected (redness or worsening drainage) and/or you are experiencing fever, chill or worsening back pain and muscle spasms, contact the office so that we may evaluate you as soon as possible. B. Complications are uncommon, but please contact us if you have any signs or symptoms of: 1. wound infection (fever higher than 102.5 degrees F, redness, separation of wound, drainage, or increasing pain from the incision) 2. blood clots in legs (pain, swelling, redness and warmth in legs) 3. urinary tract infection (fever higher than 102.5 degrees F, burning upon urination or increased frequency of urination) 4. nerve problems (inability to walk on your toes or heels, numbness, loss of bowel or bladder control) 5. any other symptoms that concern you C. Please call the office at if you have any concerns or questio ns about your operation or recovery. D. No smoking! Smoking drastically decreases the chance of a solid fusion. E. Do not take any anti-inflammatory medications (Indocin, Advil, Motrin, Aspirin, Naprosyn, etc.) as these may inhibit the chance of a solid fusion. Tylenol is okay to take for pain. MANAGING PAIN AFTER SPINAL SURGERY 1. Narcotic medication is intended for short-term use and will be provided for surgical pain. Surgical pain usually lasts for a period of 4-6 weeks. Narcotic medication includes Percocet, Vicodin, Darvocet, Tylenol #3 or Lortab. 2. Longer-term pain is more appropriately treated with non-narcotic medication such as Tylenol ES. 3. Muscle spasm is not appropriately treated with narcotics. Muscle relaxers such as Soma, Flexeril or Skelaxin can be used along with Tylenol ES. 4. Remember that we all live with some "aches and pains". This is not unusual or uncommon after an injury or as we get older. a. Back pain is expected and may include muscle spasms for 4 to 6 weeks after surgery. The pain should gradually improve. If the pain worsens for no apparent reason, please contact the office. b. Intermittent leg pain may also be experienced and should not be concerned about unless it worsens for no apparent reason. If so, please contact the office. 5. We will provide appropriate medication within the normal guidelines of their prescribed use. We will also be very cautious and aware of potential abuse and extended duration of patients' medication needs. a. Pain medications are for your comfort and to assist with sleep and rest so that the tissue can heal. They are not provided in order to return to normal activity and should not be used through the day. To do so or worsening pain at night can result from ongoing tissue damage and development of tolerance to the prescribed medicine. 6. Please allow 2-3 days to process refills. Prescriptions will not be mailed but must be picked up at the office. FOLLOW UP VISIT: Keep your scheduled follow-up appointment. Any questions, please call the office at . Pending Studies at Discharge: No Stand-Alone Forms: [facility], Smoking Cessation Medications and DC Order Prescriptions: New tramadol 50 mg tablet 50 mg PO Q6H PRN (Reason: pain, moderate) Qty: 30 0RF oxycodone 5 mg tablet 5 mg PO Q6H PRN (Reason: pain) Qty: 30 0RF Continued hydrocodone-acetaminophen 7.5-325 mg Tablet 1 tab PO TID PRN (Reason: Pain) levothyroxine 125 mcg Tablet 125 mcg PO QAM hydrochlorothiazide 25 mg Tablet 25 mg PO QAM irbesartan 300 mg Tablet 300 mg PO QAM duloxetine 60 mg Capsule,Delayed Release(Dr/Ec) 60 mg PO BID Januvia 25 mg Tablet 25 mg PO QAM Ozempic 1 mg/dose (2 mg/1.5 mL) Pen Injector 1 mg SUBCUT WK aspirin 81 mg Capsule 81 mg PO QAM cholecalciferol (vitamin D3) [Vitamin D3] 25 mcg (1,000 unit) Tablet 25 mcg PO QAM Cbd 1 dose topical UD PRN (Reason: Pain) Sotyktu 6 mg Tablet 6 mg PO QAM Discharge Orders: Discharge Order (Routine); Ordered 02/21/23 Ordered By: Vinny Mckinley Admission Data Admit Date/Time: 02/18/23 10:11 Attending Provider: Vinny Mckinley Admit Provider: Vinny Mckinley Primary Care Provider: Fernando Valenzuela Other Providers: Marian Haley ; Yossi Foote
== END 2023-02-21 11:28 | disposition home or self-care (01) | DRG 454 ==
LOC: ASU 06:11 → 3E 10:11